=== PATIENT | female | born 1950 | race Two or more races ===

== ENCOUNTER 2019-01-22 18:00 | Inpatient (IN) | payer MEDICARE ==
[~2019-01-22] VITALS: Ht 149.9 cm; Wt 35.1 kg
--- NOTE | 2019-01-22 18:15 | NUR ---
CAME IN FOR ABDOMINAL PAIN SINCE YESTERDAY, -N/V/D. PS 02/16. TO ER BED 7, HOOKED T MONITOR, CHANGED TO GOWN, PROVIDED W WARM BLANKET, DR PARKER AT BEDSIDE
[2019-01-22] MEDS ORDERED: MORPHINE SULFATE INJ 2 MG/ML DISP.SYRIN IV ONE (18:30)
[2019-01-22] MEDS ORDERED: IV NS 0.9% 500 ML BAG IV ONE (18:30)
[2019-01-22] MEDS ORDERED: ONDANSETRON HCL/PF 4 MG/2 ML VIAL ONE (18:30)
[2019-01-22] MEDS ORDERED: MORPHINE SULFATE INJ 2 MG/ML DISP.SYRIN ONE ×2 (18:30→23:59)
[2019-01-22] MEDS ORDERED: ONDANSETRON HCL/PF 4 MG/2 ML VIAL IVP ONE (18:30)
[2019-01-22 18:39] LABS: BASOPHILS % (AUTO) 0.7 % (0.0-2.0); HEMATOCRIT 38 % (33-45); HEMOGLOBIN 12.4 g/dL (11.5-14.8); LYMPHOCYTES # (AUTO) 0.6 /CMM (0.8-4.8); LYMPHOCYTES % (AUTO) 7.9 % (20.0-44.0); MEAN CORPUSCULAR HGB CONC 33 g/dl (31.0-36.0); MEAN CORPUSCULAR VOLUME 92 fL (82-100); MONOCYTES # (AUTO) 0.1 /CMM (0.1-1.30); MONOCYTES % (AUTO) 1.5 % (2.0-12.0); NEUTROPHILS # (AUTO) 6.7 /CMM (1.8-8.9); NEUTROPHILS % (AUTO) 89.9 % (43.0-81.0); PLATELET COUNT (AUTO) 164 /CMM (150-450); RED BLOOD CELL COUNT(AUTO) 4.06 MIL/uL (4.0-5.2); WHITE BLOOD COUNT (AUTO) 7.5 K/uL (4.3-11.0)
[2019-01-22 18:49] LABS: CALCIUM, SERUM 9.3 mg/dL (8.5-10.1); CARBON DIOXIDE 24 mmol/L (21-32); CHLORIDE 101 mmol/L (98-107); CREATININE 0.9 mg/dL (0.6-1.3); GLUCOSE 105 mg/dL (74-106); POTASSIUM 3.5 mmol/L (3.5-5.1); SODIUM SERUM 140 mmol/L (136-145); UREA NITROGEN, BLOOD 18 mg/dL (7-18)
[2019-01-22 18:53] LABS: ALANINE AMINOTRANSFERASE 12 U/L (12-78); ALBUMIN 3.9 g/dL (3.4-5.0); ALKALINE PHOSPHATASE 60 U/L (46-116); ASPARTATE AMINOTRANSFERASE 16 U/L (15-37); BILIRUBIN,DIRECT 0.1 mg/dL (0.0-0.2); BILIRUBIN,TOTAL 0.8 mg/dL (0.2-1.0); LIPASE 82 U/L (73-393); TOTAL PROTEIN, SERUM 7.4 g/dL (6.4-8.2)
[2019-01-22] MEDS ORDERED: PIPERACILLIN /TAZOBACTAM 3.375 G in IV D5W 50 ML IV ONE (21:30)
--- NOTE | 2019-01-22 21:58 | NUR ---
CALLED [facility], PAGED PATRICIO
[2019-01-22] MEDS ORDERED: HYDROCODONE/APAP 5/325MG 1 EACH TABLET PO PRN (22:00)
[2019-01-22] MEDS ORDERED: Z GUARD REMEDY 2 OZ OINT TP PRN (22:00)
[2019-01-22] MEDS ORDERED: MAG HYDROX/AL HYDROX/SIMETH 30 ML UDC PO PRN (22:00)
[2019-01-22] MEDS ORDERED: IV NS 0.9% 1,000 ML BAG IV ONE (22:00)
[2019-01-22] MEDS ORDERED: MAGNESIUM HYDROXIDE 30 ML UDC PO PRN (22:00)
[2019-01-22] MEDS ORDERED: MORPHINE SULFATE INJ 2 MG/ML DISP.SYRIN IV PRN (22:00)
[2019-01-22] MEDS ORDERED: IV NS 0.9% 1,000 ML IV PRN (22:00)
[2019-01-22] MEDS ORDERED: ONDANSETRON HCL/PF 4 MG/2 ML VIAL IVP PRN (22:00)
[2019-01-22] MEDS ORDERED: PIPERACILLIN /TAZOBACTAM 3.375 G VIAL IV ONE (22:08)
--- NOTE | 2019-01-22 22:49 | NUR ---
DR. CURRY AT BEDSIDE FOR EVAL.
--- NOTE | 2019-01-22 23:39 | NUR ---
PT ASSIGNED TO BED 208-
--- NOTE | 2019-01-22 23:48 | NUR ---
INSTRUCTED PATIENT NPO, PATIENT VERBALIZED UNDERSTANDING
--- NOTE | 2019-01-22 23:50 | NUR ---
REPORT GIVEN TO FREYA OF MS UNIT
--- NOTE | 2019-01-22 23:58 | NUR ---
PATIENT C/O 7/10 PS OF ABDOMINAL PAIN, ASKING FOR PAIN MEDICATION. MADE DR CARTER AWARE. RECEIVED VERBAL ORDER OF MORPHINE 2MG IVP. CARRIED OUT
[2019-01-23] VITALS (9 sets, daily range): BP systolic 93–106; BP diastolic 52–62
--- NOTE | 2019-01-23 00:03 | NUR ---
URINE SAMPLE SENT TO LAB
[2019-01-23 00:13] LABS: APPEARANCE,URINE Clear (CLEAR); BILIRUBIN,URINE MODERATE (NEGATIVE); BLOOD, URINE Trace-lysed Ery/uL (NEGATIVE); COLOR,URINE Yellow (YELLOW); KETONES,URINE >=160 (NEGATIVE); LEUKOCYTE ESTERASE ,URINE Negative (NEGATIVE); NITRITE, URINE Negative (NEGATIVE); PROTEIN,URINE 30 mg/dl (NEGATIVE); UGLUCOSE Negative (NEGATIVE); UROBILINOGEN,URINE 0.2 EU/dL (0.2)
[2019-01-23] MEDS ORDERED: MORPHINE SULFATE INJ 2 MG/ML DISP.SYRIN IV PRN (00:30)
[2019-01-23 00:45] LABS: BACTERIA,URINE Few /HPF (None Seen); SQUAMOUS EPITHELIAL CELL,UR Few /HPF (None Seen); URINE AMORPHOUS URATE Moderate /HPF (None Seen); WBC,URINE 0-2 /HPF (0-3)
--- NOTE | 2019-01-23 00:49 | NUR ---
PT WAS TRANSFERRED TO 208 IN STABLE CONDITION.
--- NOTE | 2019-01-23 00:50 | NUR ---
RECEIVED PATIENT FROM ED VIA GURNEY IN STABLE CONDITION. PATIENT AWAKE, A/OX4 AND ABLE TO PROVIDE HISTORY. WITH C/O 7/10 SHARP ABDOMINAL PAIN, PRN MORPHINE 2MG IV GIVEN IN ER PRIOR TO TRANSFER TO UNIT. PERIPHERAL LINE IN RFA #18 GAUGE INTACT AND PATENT. NPO STATUS MAINTAINED. PATIENT VERBALIZED GOOD UNDERSTANDING OF CURRENT POC. BED IN LOW LOCK SETTING. ROOM FREE OF CLUTTER AND BELONGINGS KEPT NEAR BEDSIDE. WILL CONTINUE TO MONITOR.
[2019-01-23] MEDS ORDERED: ZOSYN IVPB 3.375 G in IV D5W 50ml IV ONE (04:00)
[2019-01-23] MEDS ORDERED: PIPERACILLIN /TAZOBACTAM 3.375 G VIAL IV ONE (04:21)
[2019-01-23] MEDS ORDERED: ZOSYN IVPB 3.375 G in IV D5W 50ml IV SCH (06:00)
[2019-01-23 06:31] LABS: BASOPHILS % (AUTO) 0.1 % (0.0-2.0); HEMATOCRIT 33 % (33-45); HEMOGLOBIN 11.1 g/dL (11.5-14.8); LYMPHOCYTES # (AUTO) 0.7 /CMM (0.8-4.8); LYMPHOCYTES % (AUTO) 6.3 % (20.0-44.0); MEAN CORPUSCULAR HGB CONC 34 g/dl (31.0-36.0); MEAN CORPUSCULAR VOLUME 91 fL (82-100); MONOCYTES # (AUTO) 0.5 /CMM (0.1-1.30); MONOCYTES % (AUTO) 4.4 % (2.0-12.0); NEUTROPHILS # (AUTO) 10.5 /CMM (1.8-8.9); NEUTROPHILS % (AUTO) 89.2 % (43.0-81.0); PLATELET COUNT (AUTO) 123 /CMM (150-450); RED BLOOD CELL COUNT(AUTO) 3.63 MIL/uL (4.0-5.2); WHITE BLOOD COUNT (AUTO) 11.7 K/uL (4.3-11.0)
--- NOTE | 2019-01-23 06:47 | NUR ---
MS RN NOTES PATIENT AWAKE IN BED WITH NO DISTRESS NOTED. CALL LIGHT WITHIN REACH. ALL DUE MEDS GIVEN ORDERED WITH NO ASE NOTED. NO FURTHER C/O PAIN OR DISCOMFORT. PERIPHERAL LINE INTACT AND PATENT. NPO STATUS MAINTAINED ORDERED. BED IN LOW LOCK SETTING. ROOM FREE OF CLUTTER AND BELONGINGS KEPT NEAR BEDSIDE. WILL ENDORSE TO ONCOMING SHIFT.
[2019-01-23 06:48] LABS: CALCIUM, SERUM 8.2 mg/dL (8.5-10.1); CREATININE 0.8 mg/dL (0.6-1.3); MAGNESIUM 1.5 mg/dL (1.8-2.4); PHOSPHORUS 3.2 mg/dL (2.5-4.9); POTASSIUM 3.6 mmol/L (3.5-5.1)
--- NOTE | 2019-01-23 07:45 | NUR ---
MS/RN Patient received Patient received from shift superintendent. A/O X4, vital signs stable, complaining of right sided abdominal pain 11/16. Will administer pain medications. NPO for possible surgery later today. Safety measures in place, will continue to monitor and ensure safety.
[2019-01-23] MEDS ORDERED: ASPI-992 PO (08:29)
[2019-01-23] MEDS ORDERED: MULT1TAB73 PO (08:29)
[2019-01-23] MEDS ORDERED: SIME80TA15 PO (08:29)
--- NOTE | 2019-01-23 09:00 | NUR ---
MS/RN Labs Morning labs reviewed: -WBC11.7 -Mag 1.5 -Lactic acid 1.6
--- NOTE | 2019-01-23 09:25 | NUR ---
MS/proposal director consult Dr Shah called to follow up and ensure that consult was called through. Awaiting call back.
[2019-01-23] MEDS: PIPERACILLIN /TAZOBACTAM 3.375 G in IV D5W 100 ML IV SCH ×2 (09:56→17:05)
--- NOTE | 2019-01-23 11:01 | NUR ---
MS/RN Dr Shah Patient seen and examined by Dr Shah - to be consented for laparoscopic, possible open appendectomy.
--- NOTE | 2019-01-23 11:33 | NUR ---
MS/community service patrol officer Patient taken to operating room for laparoscopic, possible open appendectomy.
[2019-01-23] MEDS: Magnesium 1GM/D5W 100ML PREMIX 100 ML IV SCH ×2 (12:54→12:55)
[2019-01-23] MEDS ORDERED: BUPIVACAINE 0.25% 75 MG/30 ML VIAL ONE (13:08)
[2019-01-23] MEDS ORDERED: BACITRACIN ZINC OINT (15 GM) 15 GM TUBE TP ONE ×2 (13:22→13:23)
[2019-01-23] MEDS ORDERED: BACITRACIN ZINC OINT PACKET 1 EA PACKET TP ONE (13:24)
[2019-01-23] MEDS ORDERED: HYDROCODONE/APAP 5/325MG 1 EACH TABLET PO PRN (14:30)
[2019-01-23] MEDS: IV LR 1000 ML 1,000 ML IV PRN (14:43)
--- NOTE | 2019-01-23 14:56 | NUR ---
MS/RN Post op Patient received back to room, s/p open appendectomy with Dr Shah. Vital signs recorded as per hospital protocol, remains slightly hypotensive at 97/54 although this is within normal range for patient, all other vital signs stable. Perez catheter to gravity, draining clear yellow urine. IV fluids LR infusing at 125ml/hr via right ac 22g, no signs of infiltration. Patient to remain NPO overnight and start clear liquids tomorrow morning. Surgical dressing to abdomen clean and dry. Call light within reach, bed in low setting, side rails X3 in upright position, will continue to monitor and ensure safety.
[2019-01-23] MEDS: PANTOPRAZOLE 40 MG VIAL IV SCH (17:05)
--- NOTE | 2019-01-23 18:29 | NUR ---
MS/RN End note Remains stable post op. Dressing dry and intact, patient aware that fluids are to be held until tomorrow morning. Mouth care provided. Call light within reach, will endorse to overnight stocker.
[2019-01-23] MEDS: HYDROMORPHONE 1 MG/1 ML DISP.SYRIN IV PRN (20:25)
--- NOTE | 2019-01-23 22:00 | NUR ---
MS/RN PATIENT IS SLEEPING AT THIS TIME, AROUSABLE, APPEAR COMFORTABLE, NO SIGNS OF DISTRESS NOTED, CALL LIGHT IN REACH. WILL MONITOR.
[2019-01-24] MEDS: PIPERACILLIN /TAZOBACTAM 3.375 G in IV D5W 100 ML IV SCH ×3 (01:56→17:35)
[2019-01-24] MEDS: IV LR 1000 ML 1,000 ML IV PRN ×2 (01:57→16:05)
[2019-01-24] MEDS: HYDROMORPHONE 1 MG/1 ML DISP.SYRIN IV PRN ×3 (03:43→23:04)
--- NOTE | 2019-01-24 07:08 | NUR ---
MS/RN PATIENT IS AWAKE, COMFORTABLE, NO SIGNS OF DISTRESS NOTED, CALL LIGHT IN REACH. ALL NEEDS ATTENDED AT THIS TIME, WILL CONTINUE TO MONITOR.
[2019-01-24 07:26] LABS: BASOPHILS % (AUTO) 0.1 % (0.0-2.0); HEMATOCRIT 30 % (33-45); LYMPHOCYTES # (AUTO) 0.7 /CMM (0.8-4.8); LYMPHOCYTES % (AUTO) 6.5 % (20.0-44.0); MEAN CORPUSCULAR HGB CONC 34 g/dl (31.0-36.0); MEAN CORPUSCULAR VOLUME 92 fL (82-100); MONOCYTES # (AUTO) 0.3 /CMM (0.1-1.30); MONOCYTES % (AUTO) 2.4 % (2.0-12.0); NEUTROPHILS # (AUTO) 9.8 /CMM (1.8-8.9); PLATELET COUNT (AUTO) 111 /CMM (150-450); RED BLOOD CELL COUNT(AUTO) 3.25 MIL/uL (4.0-5.2); WHITE BLOOD COUNT (AUTO) 10.8 K/uL (4.3-11.0)
--- NOTE | 2019-01-24 07:32 | NUR ---
MS RN NOTES PATIENT RECEIVED RESTING INSIDE ROOM. AWAKE, ALERT AND ORIENTED X 4, VERBALLY RESPONSIVE AND RESPONDS TO VERBAL AND TACTILE STIMULI. BREATHING EVEN AND UNLABORED. PAUL CATHETER IN PLACE WITH YELLOW URINE OUTPUT NOTED ON COLLECTING BAG. PATIENT CALM AND RELAXED. NO CHANGES IN LOC NOTED AT THIS TIME. WILL CONTINUE TO MONITOR. BED LOCKED AND IN LOW POSITION. BILATERAL UPPER SIDE RAILS UP AND LOCKED. CALL LIGHT WITHIN EASY REACH
[2019-01-24 07:50] LABS: CALCIUM, SERUM 8.3 mg/dL (8.5-10.1); CREATININE 0.8 mg/dL (0.6-1.3); MAGNESIUM 1.7 mg/dL (1.8-2.4); PHOSPHORUS 2.7 mg/dL (2.5-4.9); POTASSIUM 3.5 mmol/L (3.5-5.1)
[2019-01-24 08:00] VITALS: BP 94/57
[2019-01-24] MEDS ORDERED: Magnesium 1GM/D5W 100ML PREMIX PIGGYBACK IV ONE (09:00)
[2019-01-24] MEDS: Magnesium 1GM/D5W 100ML PREMIX 100 ML IV SCH ×2 (09:40→11:33)
--- NOTE | 2019-01-24 11:30 | NUR ---
MS RN NOTES PATIENT SEEN AND EXAMINED BY DR. DEL ROSARIO, CLEARED PATIENT TO START SOFT DIET. ORDER NOTED AND CARRIED OUT. PATIENT AWARE AND VERBALIZED UNDERSTANDING. WILL CONTINUE TO MONITOR
[2019-01-24] MEDS: ONDANSETRON HCL/PF 4 MG/2 ML VIAL IVP PRN ×2 (12:41→22:00)
[2019-01-24] MEDS: ENSURE CLEAR 237 ML LIQUID (MIX BERRY) PO SCH ×2 (13:00→17:36)
[2019-01-24] MEDS: PANTOPRAZOLE 40 MG VIAL IV SCH (17:35)
--- NOTE | 2019-01-24 19:20 | NUR ---
MS RN OPENING NOTES Received patient A/O x4, awake on Conde's position on bed. With minimal complaints of abdominal pain, aggravated by movement, relieved by rest, 3/10. With abdominal dressing clean, dry and intact. S/P explore laparotomy day 2, afebrile at this time. With peripheral IV line RAC G#18 with NS infusing well @ 125ml/hr as ordered. Discussed with patient the plan of care, encouraged patient to increase ambulation as tolerated. Patient verbalized understanding. Kept bed low and locked, siderails x2 up. Call light within easy reach. Will continue to monitor accordingly.
--- NOTE | 2019-01-24 19:41 | NUR ---
MS RN NOTES PATIENT RESTING INSIDE ROOM. AWAKE, ALERT AND ORIENTED X4, VERBALLY RESPONSIVE AND RESPONDS TO VERBAL AND TACTILE STIMULI. BREATHING EVEN AND UNLABORED. NO ACUTE DISTRESS. DENIES ANY PAIN OR DISCOMFORT AT THIS TIME. PATIENT KEPT CLEAN, DRY AND COMFORTABLE. PROVIDED WITH CALM, SAFE, HAZARD-FREE ENVIRONMENT. ENDORSED TO INCOMING SHIFT FOR KRISTOFER. BED LOCKED AND IN LOW POSITION. BILATERAL UPPER SIDE RAILS UP AND LOCKED. CALL LIGHT WITHIN EASY REACH
[2019-01-24 19:55] VITALS: BP 95/59
[2019-01-25] MEDS: IV LR 1000 ML 1,000 ML IV PRN ×2 (00:49→10:23)
[2019-01-25] MEDS: PIPERACILLIN /TAZOBACTAM 3.375 G in IV D5W 100 ML IV SCH ×3 (01:25→17:12)
[2019-01-25] MEDS: ONDANSETRON HCL/PF 4 MG/2 ML VIAL IVP PRN ×2 (03:56→15:28)
--- NOTE | 2019-01-25 06:41 | NUR ---
MS RN CLOSING NOTES Patient intermittently asleep throughout the shift. On RA, no respiratory distress noted. Patient claimed she remained nauseous all throughout the shift despite the Zofran medication, 2 doses administered as ordered. Offered non-pharmacologic interventions, patient insisted to refuse interventions offered. All nursing needs attended. Patient noted ambulating to bathroom with 1 person assist. Kept on bed clean, dry and comfortable. Call light within easy reach. On fall precautions. Endorsed to the next shift.
[2019-01-25 08:00] VITALS: BP 121/74
--- NOTE | 2019-01-25 08:00 | NUR ---
MS RN NOTES PATIENT IN BED ALERT, ORIENTED X3 DENIES ANY PAIN OR DISCOMFORT. PATIENT IS COMPLAINING FO NAUSEA DR. VEGA MADE AWARE ORDERS OBTAINED FOR REGLAN Q8HRS NEEDED. PERIPHERAL IV INTACT PATENT. CALL LIGHT WITHIN REACH. BED IN LOW LOCKED POSITION. WILL CONTINUE TO MONITOR.
[2019-01-25] MEDS: ENSURE CLEAR 237 ML LIQUID (MIX BERRY) PO SCH ×3 (08:30→17:50)
[2019-01-25] MEDS: METOCLOPRAMIDE HCL 10 MG/2 ML VIAL IV PRN ×2 (09:09→17:49)
[2019-01-25 16:00] VITALS: BP 119/70
[2019-01-25] MEDS: PANTOPRAZOLE 40 MG VIAL IV SCH (17:13)
--- NOTE | 2019-01-25 18:46 | NUR ---
MS RN NOTES PATIENT IN BED RESTING NO SOB OR ACUTE DISTRESS NOTED. ALL DUE MEDICATIONS ADMINISTERED. ALL NEEDS MET. NO ACUTE CHANGES NOTED DURING SHIFT. WILL ENDORSE CARE TO PM SHIFT.
--- NOTE | 2019-01-25 19:56 | NUR ---
MS/RN RECEIVE PATIENT AWAKE, ALERT, ORIENTED, COMFORTABLE, NO C/O PAIN, NO DISTRESS NOTED, CALL LIGHT IN REACH. WILL MONITOR.
[2019-01-25 20:53] VITALS: BP 128/75
[2019-01-26] MEDS: ONDANSETRON HCL/PF 4 MG/2 ML VIAL IVP PRN ×2 (00:12→21:49)
--- NOTE | 2019-01-26 01:35 | NUR ---
MS/RN PATIENT IS SLEEPING AT THIS TIME, APPEAR COMFORTABLE, NO SIGNS OF DISTRESS NOTED, CALL LIGHT IN REACH. WILL CONTINUE TO MONITOR.
[2019-01-26] MEDS: PIPERACILLIN /TAZOBACTAM 3.375 G in IV D5W 100 ML IV SCH ×3 (01:56→17:13)
[2019-01-26] MEDS: IV LR 1000 ML 1,000 ML IV PRN ×3 (03:05→21:49)
--- NOTE | 2019-01-26 06:45 | NUR ---
MS/RN PATIENT IS STILL SLEEPING AT THIS TIME, APPEAR COMFORTABLE, NO DISTRESS NOTED, CALL LIGHT IN REACH. ALL NEEDS ATTENDED AT THIS TIME, WILL CONTINUE TO MONITOR.
--- NOTE | 2019-01-26 07:53 | NUR ---
MS RN OPENING NOTES RECEIVED PT SITTING UP IN BED, A/O X4. RESPIRATIONS ARE EVEN AND UNLABORED, NOT IN ANY ACUTE DISTRESS NOTED. PT DENIES ANY PAIN AT THIS TIME, NO C/O SOB, N/V. IV SITE TO RAC INTACT, NO INFILTRATION NOTED. DRESSING KEPT CLEAN AND DRY. IV FLUIDS RUNNING AT 125ML/HR, TOLERATING WELL. SAFETY MEASURES ARE IN PLACE. INSTRUCTED PT TO USE CALL LIGHT WHEN ASSISTANCE IS NEEDED, CALL LIGHT IS LEFT WITHIN REACH. WILL MONITOR THROUGHOUT SHIFT FOR CONTINUITY OF CARE.
[2019-01-26 08:00] VITALS: BP 111/68
[2019-01-26] MEDS: ACETAMINOPHEN 325 MG TABLET PO PRN (08:18)
[2019-01-26] MEDS: ENSURE CLEAR 237 ML LIQUID (MIX BERRY) PO SCH (08:18)
--- NOTE | 2019-01-26 08:40 | NUR ---
MS RN NOTES-- PT WAS SEEN AND EXAMINED BY DR. PATEL.
[2019-01-26] MEDS: ENSURE ENLIVE 237 ML LIQUID (VANILLA) PO SCH ×2 (12:54→17:13)
[2019-01-26 16:00] VITALS: BP_SYST 121; BP_SYST 124; BP_DIAS 69; BP_DIAS 78
[2019-01-26] MEDS: PANTOPRAZOLE 40 MG VIAL IV SCH (17:13)
--- NOTE | 2019-01-26 19:03 | NUR ---
MS RN CLOSING NOTES ALL DUE MEDS GIVEN, NEEDS MET AND RENDERED. PT IS A/O X4, AFEBRILE. RESPIRATIONS ARE EVEN AND UNLABORED, NOT IN ANY ACUTE DISTRESS NOTED. PT DENIES ANY PAIN AT THIS TIME, NO C/O SOB, N/V. IV SITE TO RAC INTACT, NO INFILTRATION NOTED. DRESSING KEPT CLEAN AND DRY. PT IS AMBULATORY WITH FWW AND STANDBY ASSIST. SAFETY MEASURES ARE IN PLACE. WILL ENDORSED TO NEXT SHIFT FOR CONTINUITY OF CARE.
--- NOTE | 2019-01-26 19:30 | NUR ---
RECEIVED PATIENT AWAKE IN BED. AO X 3, ABLE TO MAKE NEEDS KNOWN. NO ACUTE DISTRESS NOTED. DENIES ANY PAIN AT THIS TIME. IV SITE PATENT, INTACT; IVF INFUSING ORDERED. ABDOMINAL DRESSING INTACT WITH NO SIGNS OF ACTIVE BLEEDING. SAFETY REMINDERS GIVEN. ON LOW BED WITH BILATERAL UPPER SIDE RAILS UP. CALL TAN WITHIN EASY REACH. WILL CONTINUE TO MONITOR.
[2019-01-26 19:40] VITALS: BP 119/71
[2019-01-26 20:00] VITALS: BP 119/71
--- NOTE | 2019-01-27 01:00 | NUR ---
PATIENT AWAKE. NO ACUTE DISTRESS NOTED. ENCOURAGED TO SLEEP. ASSISTED TO THE BATHROOM. NO BM THIS SHIFT SO FAR. VOIDED AT LEAST ONCE. WILL CONTINUE TO MONITOR.
[2019-01-27] MEDS: PIPERACILLIN /TAZOBACTAM 3.375 G in IV D5W 100 ML IV SCH (02:04)
[2019-01-27] MEDS: IV LR 1000 ML 1,000 ML IV PRN ×2 (06:29→21:56)
--- NOTE | 2019-01-27 06:30 | NUR ---
PATIENT ASLEEP, EASILY AROUSABLE. RESPIRATIONS EVEN. NO SIGNS OF PAIN NOTED. NPO SINCE MIDNIGHT. IVF INFUSING ORDERED. NEEDS ATTENDED. SAFETY PRECAUTIONS AND COMFORT MEASURES IN PLACE. WILL GIVE REPORT TO DAY SHIFT FOR CONTINUITY OF CARE.
--- NOTE | 2019-01-27 07:35 | NUR ---
MS RN OPENING NOTES RECEIVED PT SITTING UP IN BED, A/O X4. RESPIRATIONS ARE EVEN AND UNLABORED, NOT IN ANY ACUTE DISTRESS NOTED. PT DENIES ANY PAIN AT THIS TIME, NO C/O SOB, N/V. IV SITE TO RAC INTACT, NO INFILTRATION NOTED. DRESSING KEPT CLEAN AND DRY. IV FLUIDS RUNNING AT 125ML/HR, TOLERATING WELL. ASSISTED PT TO BATHROOM USING FWW. PT ABLE TO HAVE SMALL BM THIS AM. PT ASSISTED BACK TO BED. SAFETY MEASURES ARE IN PLACE. INSTRUCTED PT TO USE CALL LIGHT WHEN ASSISTANCE IS NEEDED, CALL LIGHT IS LEFT WITHIN REACH. WILL MONITOR THROUGHOUT SHIFT FOR CONTINUITY OF CARE.
[2019-01-27 08:00] VITALS: BP 112/71
[2019-01-27] MEDS ORDERED: CEFAZOLIN 2 GM in IV D5W 100 ML IV SCH (08:30)
[2019-01-27] MEDS: CEFAZOLIN 1 GM in IV D5W 50 ML IV SCH ×2 (09:21→21:56)
[2019-01-27] MEDS: ENSURE ENLIVE 237 ML LIQUID (VANILLA) PO SCH ×3 (09:29→16:20)
[2019-01-27 10:07] LABS: CALCIUM, SERUM 8.3 mg/dL (8.5-10.1); CREATININE 0.6 mg/dL (0.6-1.3)
[2019-01-27 10:10] LABS: BASOPHILS % (AUTO) 0.1 % (0.0-2.0); HEMATOCRIT 32 % (33-45); HEMOGLOBIN 10.9 g/dL (11.5-14.8); LYMPHOCYTES # (AUTO) 0.5 /CMM (0.8-4.8); MEAN CORPUSCULAR HGB CONC 34 g/dl (31.0-36.0); MEAN CORPUSCULAR VOLUME 90 fL (82-100); MONOCYTES # (AUTO) 0.7 /CMM (0.1-1.30); MONOCYTES % (AUTO) 6.8 % (2.0-12.0); NEUTROPHILS # (AUTO) 8.6 /CMM (1.8-8.9); NEUTROPHILS % (AUTO) 88.1 % (43.0-81.0); PLATELET COUNT (AUTO) 190 /CMM (150-450); RED BLOOD CELL COUNT(AUTO) 3.57 MIL/uL (4.0-5.2); WHITE BLOOD COUNT (AUTO) 9.8 K/uL (4.3-11.0)
[2019-01-27 10:13] LABS: ALBUMIN 2.5 g/dL (3.4-5.0); BILIRUBIN,TOTAL 0.6 mg/dL (0.2-1.0); TOTAL PROTEIN, SERUM 5.6 g/dL (6.4-8.2)
[2019-01-27 10:14] LABS: POTASSIUM 2.7 mmol/L (3.5-5.1)
[2019-01-27] MEDS: POTASSIUM CHLORIDE 20 MEQ TAB.PRT.SR PO SCH ×4 (10:46→14:09)
[2019-01-27] MEDS: METOCLOPRAMIDE HCL 10 MG/2 ML VIAL IV PRN (11:14)
--- NOTE | 2019-01-27 12:40 | NUR ---
MS RN NOTES-- PT ABLE TO MAKE NEEDS KNOWN, NEEDS MET AND RENDERED. PT NOT IN ANY APPARENT DISTRESS NOTED. WILL CONTINUE TO MONITOR.
--- NOTE | 2019-01-27 15:30 | NUR ---
MS RN NOTES-- PT'S DPOA AT BEDSIDE WITH NOTARY PERSON. PAPERS OF ADVANCED DIRECTIVES PLACED IN CHART. CASE MANAGEMENT, SENG, AWARE. DR. PATEL MADE AWARE THAT PT WISHES TO BE DNR/DNI. PER DR. PATEL, OKAY TO CHANGE CODE STATUS.
--- NOTE | 2019-01-27 16:06 | NUR ---
MS RN NOTES-- RECEIVED ORDERS PER DR. PATEL FOR RESTORIL 7.5MG PO HS PRN. ORDER READ BACK AND VERIFIED. NOTED AND CARRIED OUT.
[2019-01-27] MEDS ORDERED: TEMAZEPAM 7.5 MG CAPSULE PO PRN (16:30)
[2019-01-27 16:40] VITALS: BP 129/81
[2019-01-27] MEDS: PANTOPRAZOLE 40 MG VIAL IV SCH (17:11)
--- NOTE | 2019-01-27 18:31 | NUR ---
MS RN CLOSING NOTES ALL DUE MEDS GIVEN, NEEDS MET AND RENDERED. PT IS A/O X4, AFEBRILE. RESPIRATIONS ARE EVEN AND UNLABORED, NOT IN ANY ACUTE DISTRESS NOTED. PT DENIES ANY PAIN AT THIS TIME, NO C/O SOB, N/V. IV SITE TO RAC INTACT, NO INFILTRATION NOTED. DRESSING KEPT CLEAN AND DRY. SAFETY MEASURES ARE IN PLACE. WILL ENDORSED TO NEXT SHIFT FOR CONTINUITY OF CARE.
[2019-01-27 20:00] VITALS: BP 135/85
--- NOTE | 2019-01-27 20:00 | NUR ---
MS RN NOTES RECEIVED PATIENT AWAKE IN BED WITH NO DISTRESS NOTED. CALL LIGHT WITHIN REACH. DRESSING ON ABDOMINAL INCISION CLEAN AND DRY. NO C/O PAIN OR DISCOMFORT. PERIPHERAL LINE INTACT AND PATENT. ENCOURAGED USE OF CALL LIGHT FOR ASSISTANCE AND VERBALIZED GOOD UNDERSTANDING. BED IN LOW LOCK SETTING. ROOM FREE OF CLUTTER AND BELONGINGS KEPT NEAR BEDSIDE. WILL CONTINUE TO MONITOR.
[2019-01-27] MEDS: ACETAMINOPHEN 325 MG TABLET PO PRN (21:11)
--- NOTE | 2019-01-28 07:18 | NUR ---
MS RN NOTES PATIENT AWAKE IN BED WITH NO DISTRESS NOTED. CALL LIGHT WITHIN REACH. ABDOMINAL DRESSING INTACT, CLEAN, AND DRY. NO C/O PAIN OR DISCOMFORT. ALL DUE MEDS GIVEN ORDERED WITH NO ASE NOTED. PERIPHERAL LINE INTACT AND PATENT. BED IN LOW LOCK SETTING. ALL BELONGINGS KEPT NEAR BEDSIDE. WILL ENDORSE TO ONCOMING SHIFT.
[2019-01-28] MEDS: ONDANSETRON HCL/PF 4 MG/2 ML VIAL IVP PRN (07:51)
[2019-01-28] MEDS: ACETAMINOPHEN 325 MG TABLET PO PRN (07:51)
[2019-01-28 08:00] VITALS: BP 122/78
[2019-01-28] MEDS: ENSURE ENLIVE 237 ML LIQUID (VANILLA) PO SCH ×3 (08:10→17:28)
[2019-01-28] MEDS: CEFAZOLIN 1 GM in IV D5W 50 ML IV SCH (09:22)
[2019-01-28 09:40] LABS: CALCIUM, SERUM 8.1 mg/dL (8.5-10.1); CREATININE 0.5 mg/dL (0.6-1.3); POTASSIUM 3.7 mmol/L (3.5-5.1)
--- NOTE | 2019-01-28 11:23 | NUR ---
MS RN NOTES-- RECEIVED ORDERS PER DR. PATEL FOR D/C TO SNF WITH NO ABX PER DR. DEL ROSARIO. AND TO FOLLOW UP WITH DR. DEL ROSARIO WITHIN 1 WEEKS TO REMOVE UMAIR. GARY HOLLAND MADE AWARE.
[2019-01-28 16:00] VITALS: BP 134/77
[2019-01-28] MEDS: PANTOPRAZOLE 40 MG VIAL IV SCH (17:59)
--- NOTE | 2019-01-28 18:43 | NUR ---
MS BESSEMER CONVERTER BLOWER NOTE PT DISCHARGE TO CENTER AT [facility] VIA [facility] ACCOMPANIED BY EMT PERSONNEL. PT IS A/O X4, AFEBRILE. RESPIRATIONS ARE EVEN AND UNLABORED, NOT IN ANY ACUTE DISTRESS NOTED. PT DENIES ANY PAIN AT THIS TIME, NO C/O SOB, N/V. ABDOMEN IS SOFT AND NONDISTENDED, BOWEL SOUNDS ARE PRESENT IN ALL 4 QUADRANTS UPON AUSCULTATION. DRESSING INTACT. PER DR. DEL ROSARIO, TO FOLLOW UP FOR STAPLE REMOVAL IN 1 WEEK. DENIES ANY BLADDER DISCOMFORT. PICTURE TAKEN TO LEFT FOOT, PLACED IN CHART. IV ACCESS REMOVED, APPLIED PRESSURE AND TOLERATED WELL. ID BANDS REMOVED. ALL BELONGINGS SENT WITH PT. CALLED [facility] AT [facility], REPORT GIVEN TO KIERSTEN, COPY OF ADVANCE DIRECTIVES SENT WITH DISCHARGE PAPERWORK. CALLED GARY HOLLAND, AND EXPLAINED DISCHARGE PAPERWORK TO BOTH DPOA AND PT WITH VERBAL AND WRITTEN UNDERSTANDING. BEDSIDE ENDORSEMENT GIVEN TO EMT PERSONNEL. PT LEFT VIA GURNEY IN STABLE CONDITION.
== END 2019-01-28 18:40 | DRG 341 ==
LOC: ER 18:03 → MEDSG2 23:41 → MED 01-27 20:08
PROVIDERS: ADMIT Internal Medicine; ATTEND Internal Medicine
PROC: 0DTJ0ZZ Resection of Appendix, Open Approach (ICD-10-PCS; principal; 2019-01-23)
PROC: 0WJG4ZZ Inspection of Peritoneal Cavity, Percutaneous Endoscopic Approach (ICD-10-PCS; 2019-01-23)
DX: K35.30 Acute appendicitis with localized peritonitis, without perforation or gangrene (principal); E43 Unspecified severe protein-calorie malnutrition; E87.2 Acidosis; Z68.1 Body mass index [BMI] 19.9 or less, adult; R64 Cachexia; E78.5 Hyperlipidemia, unspecified; Z53.31 Laparoscopic surgical procedure converted to open procedure; D63.8 Anemia in other chronic diseases classified elsewhere; K76.9 Liver disease, unspecified; K58.9 Irritable bowel syndrome, unspecified
CPT/HCPCS: 36415; 71045-TC; 80048-TC; 80053-TC; 80061-TC; 80076-TC; 81000-TC; 83605-TC; 83690-TC; 83735-TC; 84100-TC; 84134-TC; 85025-TC; 85730-TC; 87070-TC; 87075-TC; 87081-TC; 87186-TC; 88304-TC; 97110-TC; 97116-TC; 97530-TC; A6403; C9113; G0378; J0690; J1100; J1170; J2270; J2370; J2405; J2543; J2765; J3475; J3490; J7030; J7040; J7050; J7060; J7120

== ENCOUNTER 2019-02-01 12:01 | Inpatient (IN) | payer MEDICARE ==
[~2019-02-01] VITALS: Ht 152.4 cm; Wt 42.2 kg
[~2019-02-01 12:01] MED LIST: ASPI-992 PO; MULT1TAB73 PO; SIME80TA15 PO
--- NOTE | 2019-02-01 12:10 | NUR ---
PT FLOYD DOTY FROM SNF TO ER W/ COMPLAIN OF ABDOMINAL PAIN AND NAUSEA VOMITING 4x DAYS W/ DIARRHEA THIS MORNING. PT HAS HX OF APPENDECTOMY. NAD. NO SOB NOTED. PT IS GIVEN 2L NC NOW 97 O2 SAT. AWAITING LALITHA GILBERT FOR FURTHER EVAL. WILL CONTINUE TO MONITOR FOR SAFETY.
[2019-02-01] MEDS ORDERED: MORPHINE SULFATE INJ 2 MG/ML DISP.SYRIN IV ONE ×2 (13:00→18:30)
[2019-02-01] MEDS ORDERED: ONDANSETRON HCL/PF 4 MG/2 ML VIAL IVP ONE (13:00)
[2019-02-01] MEDS ORDERED: IV NS 0.9% 1,000 ML BAG IV ONE (13:00)
[2019-02-01 13:06] LABS: BASOPHILS % (AUTO) 0.2 % (0.0-2.0); HEMATOCRIT 35 % (33-45); HEMOGLOBIN 11.6 g/dL (11.5-14.8); LYMPHOCYTES # (AUTO) 0.5 /CMM (0.8-4.8); LYMPHOCYTES % (AUTO) 3.2 % (20.0-44.0); MEAN CORPUSCULAR HGB CONC 33 g/dl (31.0-36.0); MEAN CORPUSCULAR VOLUME 92 fL (82-100); MONOCYTES # (AUTO) 0.5 /CMM (0.1-1.30); MONOCYTES % (AUTO) 3.5 % (2.0-12.0); NEUTROPHILS # (AUTO) 13.7 /CMM (1.8-8.9); NEUTROPHILS % (AUTO) 93.1 % (43.0-81.0); PLATELET COUNT (AUTO) 374 /CMM (150-450); RED BLOOD CELL COUNT(AUTO) 3.82 MIL/uL (4.0-5.2); WHITE BLOOD COUNT (AUTO) 14.7 K/uL (4.3-11.0)
[2019-02-01] MEDS ORDERED: ONDANSETRON HCL/PF 4 MG/2 ML VIAL ONE (13:12)
[2019-02-01] MEDS ORDERED: MORPHINE SULFATE INJ 4 MG/ML DISP.SYRIN ONE ×2 (13:13→18:31)
[2019-02-01 13:20] LABS: ALBUMIN 3.1 g/dL (3.4-5.0); BILIRUBIN,DIRECT 0.1 mg/dL (0.0-0.2); BILIRUBIN,TOTAL 0.6 mg/dL (0.2-1.0); CALCIUM, SERUM 8.6 mg/dL (8.5-10.1); CREATININE 0.7 mg/dL (0.6-1.3); POTASSIUM 2.9 mmol/L (3.5-5.1); TOTAL PROTEIN, SERUM 6.6 g/dL (6.4-8.2)
[2019-02-01 13:21] LABS: MAGNESIUM 2.3 mg/dL (1.8-2.4); PHOSPHORUS 3.2 mg/dL (2.5-4.9)
[2019-02-01 14:07] LABS: APPEARANCE,URINE Clear (CLEAR); BILIRUBIN,URINE SMALL (NEGATIVE); BLOOD, URINE Small Ery/uL (NEGATIVE); COLOR,URINE Yellow (YELLOW); KETONES,URINE >=160 (NEGATIVE); LEUKOCYTE ESTERASE ,URINE Negative (NEGATIVE); NITRITE, URINE Negative (NEGATIVE); PH,URINE 5.5 (5.0-8.0); PROTEIN,URINE 30 mg/dl (NEGATIVE); UGLUCOSE Negative (NEGATIVE); UROBILINOGEN,URINE 0.2 EU/dL (0.2)
[2019-02-01 14:08] LABS: BACTERIA,URINE Few /HPF (None Seen); SQUAMOUS EPITHELIAL CELL,UR Few /HPF (None Seen)
--- NOTE | 2019-02-01 14:13 | NUR ---
CALLED GAMEPLAY PROGRAMMER SURGEON FOR A DR TO
[2019-02-01] MEDS ORDERED: POTASSIUM CHLORIDE 20 MEQ TAB.PRT.SR PO ONE ×2 (14:20→14:30)
[2019-02-01] MEDS ORDERED: CT SWABBABLE VALVE TRANS SET 1 EA INFUS.SET MC ONE (14:39)
[2019-02-01] MEDS ORDERED: IV NS 0.9% 250 ML IV ONE (14:39)
[2019-02-01] MEDS ORDERED: IOHEXOL-300 100 ML VIAL IV ONE (14:39)
--- NOTE | 2019-02-01 15:28 | NUR ---
CALLED DR RADFORD FOR A DR TO
[2019-02-01] MEDS ORDERED: PIPERACILLIN /TAZOBACTAM 3.375 G in IV D5W 50 ML IV ONE (16:00)
[2019-02-01] MEDS ORDERED: HYDR-4384 PO (16:04)
[2019-02-01] MEDS ORDERED: SIME80TA15 PO (16:04)
[2019-02-01] MEDS ORDERED: ASPI-992 PO (16:04)
[2019-02-01] MEDS ORDERED: LACT10SO PO (16:06)
--- NOTE | 2019-02-01 16:09 | NUR ---
CALLED HOUSE SUP FOR MS BED
--- NOTE | 2019-02-01 16:16 | NUR ---
CALLED DR RADFORD'S PA, GODFREY ASKING TO GET A HOLD OF DR RADFORD. AWAITING CALL BACK
--- NOTE | 2019-02-01 16:19 | NUR ---
CALLED ORTHODONTIC BAND MAKER SURGEON FOR A DR TO
--- NOTE | 2019-02-01 16:56 | NUR ---
309-1 GIVEN. BAILEY IS RN
--- NOTE | 2019-02-01 17:17 | NUR ---
GIVEN REPORT TO BAILEY RN FOR 309-BED 1.
[2019-02-01] MEDS ORDERED: LIDOCAINE 2% JEL UROJET 10 ML MM ONE ×2 (17:25→17:30)
--- NOTE | 2019-02-01 17:45 | NUR ---
NG tube 16fr placed.
--- NOTE | 2019-02-01 18:19 | NUR ---
power of collections attorney, joao porter [phone]
[2019-02-01] MEDS ORDERED: MAGNESIUM HYDROXIDE 30 ML UDC PO PRN (19:00)
[2019-02-01] MEDS ORDERED: ONDANSETRON HCL/PF 4 MG/2 ML VIAL IVP PRN (19:00)
[2019-02-01] MEDS ORDERED: MAG HYDROX/AL HYDROX/SIMETH 30 ML UDC PO PRN (19:00)
[2019-02-01] MEDS ORDERED: Z GUARD REMEDY 2 OZ OINT TP PRN (19:00)
[2019-02-01] MEDS ORDERED: ACETAMINOPHEN 325 MG TABLET PO PRN (19:00)
--- NOTE | 2019-02-01 19:45 | NUR ---
MS BLENDER SNUFF NOTES RECEIVED PATIENT FROM ER VIA [facility] WITH 2 ER STAFF, ALERT AND ORIENTED X 4. VERBALLY RESPONSIVE AND ABLE TO FOLLOW DIRECTIONS. BREATHING REGULAR AND UNLABORED ON ROOM AIR. NASOGASTRIC TUBE INTACT AND PATENT WITH GREENISH OUTPUT NOTED ON THE TUBE. CHECKED FOR PLACEMENT AND PLACED ON LOW INTERMITTENT SUCTION. RIGHT AC G 20 IV LINE INTACT AND PATENT FLUSHING WELL. STARTED ON NORMAL SALINE AT 100CC/HR, INFUSING WELL WITH NO BLEEDING OR S/S OF INFILTRATION SEEN. BODY ASSESSMENT DONE, OBSERVED WITH LEFT ANKLE DRY SCAB AND ABDOMINAL POST SURGICAL SITE WITH UMAIR. PHOTO TAKEN, ATTACHED TO THE CHART. BED LOW AND LOCKED ON SEMI FOWLERS POSITION. WILL CONTINUE TO MONITOR.
[2019-02-01 20:00] VITALS: BP 130/77
[2019-02-01] MEDS: IV NS 0.9% 1,000 ML IV PRN (21:19)
--- NOTE | 2019-02-01 21:45 | NUR ---
MS RN NOTES COMPLAINED OF 8/10 LOWER ABDOMINAL PAIN, NOTED WITH FACIAL GRIMACING GUARDING AND IRRITABILITY. MORPHINE 2MG IV GIVEN. WILL CONTINUE TO MONITOR.
[2019-02-01] MEDS: MORPHINE SULFATE INJ 2 MG/ML DISP.SYRIN IV PRN (21:49)
--- NOTE | 2019-02-01 22:50 | NUR ---
MS RN NOTES 1HR POST MORPHINE ADMINISTRATION, PATIENT REPORTED PAIN SCALE OF 2/10 STILL ON LOWER ABDOMINAL AREA. ICE PACK OFFERED, HEAD OF BED LOWERED. WILL CONTINUE TO MONITOR.
--- NOTE | 2019-02-02 06:33 | NUR ---
MS RN CLOSING NOTES PATIENT IN BED, ALERT AND ORIENTED X 4. VERBALLY RESPONSIVE AND ABLE TO FOLLOW DIRECTIONS. BREATHING REGULAR AND UNLABORED ON ROOM AIR. NASOGASTRIC TUBE INTACT AND PATENT WITH GREENISH OUTPUT IN SCANT AMOUNT. MAINTAINED ON LOW INTERMITTENT SUCTION. SUCTION CANISTER AND TUBING CHANGED. RIGHT AC G 20 IV LINE INTACT AND PATENT INFUSING WELL WITH NO BLEEDING OR S/S OF INFILTRATION/INFECTION SEEN. MAINTAINED ON NPO. BED LOW AND LOCKED ON SEMI FOWLERS POSITION. WILL ENDORSE TO MORNING SHIFT FOR AM LABS AND KRISTOFER.
[2019-02-02 06:55] LABS: BASOPHILS % (AUTO) 0.2 % (0.0-2.0); HEMATOCRIT 29 % (33-45); HEMOGLOBIN 9.9 g/dL (11.5-14.8); LYMPHOCYTES # (AUTO) 0.6 /CMM (0.8-4.8); LYMPHOCYTES % (AUTO) 5.7 % (20.0-44.0); MEAN CORPUSCULAR HGB CONC 34 g/dl (31.0-36.0); MEAN CORPUSCULAR VOLUME 91 fL (82-100); MONOCYTES # (AUTO) 0.8 /CMM (0.1-1.30); MONOCYTES % (AUTO) 7.2 % (2.0-12.0); NEUTROPHILS # (AUTO) 9.8 /CMM (1.8-8.9); NEUTROPHILS % (AUTO) 85.9 % (43.0-81.0); PLATELET COUNT (AUTO) 325 /CMM (150-450); RED BLOOD CELL COUNT(AUTO) 3.25 MIL/uL (4.0-5.2); WHITE BLOOD COUNT (AUTO) 11.4 K/uL (4.3-11.0)
[2019-02-02 07:19] LABS: CALCIUM, SERUM 7.8 mg/dL (8.5-10.1); CREATININE 0.6 mg/dL (0.6-1.3); MAGNESIUM 1.9 mg/dL (1.8-2.4); PHOSPHORUS 1.9 mg/dL (2.5-4.9); POTASSIUM 3.1 mmol/L (3.5-5.1)
[2019-02-02 08:00] VITALS: BP 130/72
--- NOTE | 2019-02-02 08:05 | NUR ---
ms rn received on bed, awake,alert,oriented x4, not in any form of distress, respirations even and unlabored,no sob noted, lungs are clear,abdomen soft, w/ ngt connected to low intermitent suction w/ greenish color output,will monitor patient' condition.
--- NOTE | 2019-02-02 08:23 | NUR ---
ms jeffrey was seen by dr. marisela meyer/ orders made and carried out.
[2019-02-02] MEDS: IV NS 0.9% 1,000 ML IV PRN ×2 (08:38→21:23)
[2019-02-02] MEDS ORDERED: POTASSIUM CHLORIDE 20 MEQ TAB.PRT.SR PO SCH (10:30)
[2019-02-02] MEDS: Potassium Chloride 10 MEQ, LIDOCAINE HCL/PF 1% 1 ML in IV D5W 50 ML IV SCH ×2 (12:24→13:05)
--- NOTE | 2019-02-02 13:00 | NUR ---
ms rn dr. greene called and ordered upper gi serires before he will see patient.
[2019-02-02] MEDS ORDERED: Sodium Phosphate 15 MMOL in IV D5W 250 ML IV ONE (15:00)
[2019-02-02 16:00] VITALS: BP 123/69
[2019-02-02] MEDS ORDERED: DIATR MEGLU/DIATRIZOATE SODIUM 120 ML BOTTLE (GASTROGRAPHIN) ONE ×2 (16:16→18:31)
--- NOTE | 2019-02-02 18:50 | NUR ---
ms rn gastrographine given, will monitor patient for x rays.all needs attended, endorsed to date night caregiver to caLL DR. JOE FOR SBFT RESULT.
[2019-02-02] MEDS: MORPHINE SULFATE INJ 2 MG/ML DISP.SYRIN IV PRN (19:01)
--- NOTE | 2019-02-02 19:33 | NUR ---
MS RN OPENING NOTES RECEIVED PATIENT FROM MORNING SHIFT, ALERT AND ORIENTED X 4. VERBALLY RESPONSIVE AND ABLE TO FOLLOW DIRECTIONS. BREATHING REGULAR AND UNLABORED ON ROOM AIR. NASOGASTRIC TUBE INTACT AND PATENT WITH GREENISH OUTPUT IN SCANT AMOUNT. LOW INTERMITTENT SUCTION ON HOLD FOR SMALL BOWEL FOLLOW THROUGH XRAY. RIGHT AC G 20 IV LINE INTACT AND PATENT INFUSING WELL WITH NO BLEEDING OR S/S OF INFILTRATION SEEN, ON NORMAL SALINE AT 100CC/HR. SMALL BOWEL FOLLOW THROUGH XRAY STARTED. BED LOW AND LOCKED ON SEMI FOWLERS POSITION. WILL CONTINUE TO MONITOR.
[2019-02-02 20:00] VITALS: BP 143/77
--- NOTE | 2019-02-02 23:20 | NUR ---
RN NOTES PT. NG-TUBE WAS ACCIDENTALLY PULLED OUT AND PT WAS REFUSING TO BE REINSERTED.. CHARGE NURSE MADE AWARE
--- NOTE | 2019-02-03 01:30 | NUR ---
MS RN NOTES INFORMED REGARDING SMALL BOWEL FOLLOW THROUGH RESULT AND PATIENT ACCIDENTALLY PULLING OUT NG TUBE, REFUSED NGT REINSERTION. AWAITING FOR RESPONSE.
--- NOTE | 2019-02-03 06:13 | NUR ---
MS RN NOTES SPOKE TO , RELAYED SMALL BOWEL FOLLOW THROUGH RESULT WITH NO NEW ORDER; MADE AWARE OF NG TUBE ACCIDENTAL DISLODGED WITH PATIENT REFUSED FOR REINSERTION. WILL CONTINUE TO MONITOR
--- NOTE | 2019-02-03 06:32 | NUR ---
MS RN CLOSING NOTES PATIENT IN BED, ALERT AND ORIENTED X 4. VERBALLY RESPONSIVE AND ABLE TO FOLLOW DIRECTIONS. BREATHING REGULAR AND UNLABORED ON ROOM AIR. NASOGASTRIC TUBE DISLODGED, CANISTER AND TUBING CHANGED. NOTED WITH 10CC GREENISH OUTPUT ON CANISTER. RIGHT AC G 20 IV LINE INTACT AND PATENT INFUSING WELL WITH NO BLEEDING OR S/S OF INFILTRATION/INFECTION SEEN. MAINTAINED ON NPO. BED LOW AND LOCKED ON SEMI FOWLERS POSITION. WILL ENDORSE TO MORNING SHIFT FOR AM LABS AND KRISTOFER.
[2019-02-03 06:42] LABS: CALCIUM, SERUM 8.1 mg/dL (8.5-10.1); CREATININE 0.5 mg/dL (0.6-1.3)
[2019-02-03 06:52] LABS: POTASSIUM 2.8 mmol/L (3.5-5.1)
[2019-02-03 07:12] LABS: BASOPHILS % (AUTO) 0.2 % (0.0-2.0); EOSINOPHILS % (AUTO) 0.7 % (0.0-6.0); HEMATOCRIT 30 % (33-45); HEMOGLOBIN 10.2 g/dL (11.5-14.8); LYMPHOCYTES # (AUTO) 0.6 /CMM (0.8-4.8); LYMPHOCYTES % (AUTO) 4.6 % (20.0-44.0); MEAN CORPUSCULAR HGB CONC 34 g/dl (31.0-36.0); MEAN CORPUSCULAR VOLUME 90 fL (82-100); MONOCYTES # (AUTO) 0.8 /CMM (0.1-1.30); MONOCYTES % (AUTO) 5.9 % (2.0-12.0); NEUTROPHILS # (AUTO) 11.3 /CMM (1.8-8.9); NEUTROPHILS % (AUTO) 88.6 % (43.0-81.0); PLATELET COUNT (AUTO) 311 /CMM (150-450); RED BLOOD CELL COUNT(AUTO) 3.36 MIL/uL (4.0-5.2); WHITE BLOOD COUNT (AUTO) 12.7 K/uL (4.3-11.0)
--- NOTE | 2019-02-03 07:15 | NUR ---
MS RN NOTES RELAYED POTASSIUM LEVEL OF 2.8 TO WITH ORDERS TO GIVE POTASSIUM CHLORIDE 40MEQ IV ONE TIME ONLY NOTED AND CARRIED OUT. WILL ENDORSE TO MORNING SHIFT FOR KRISTOFER.
[2019-02-03] MEDS ORDERED: POTASSIUM CHLORIDE 10 MEQ/50 ML PREMIXED IVPB FOR PERIPHERAL LINE IV ONE (07:30)
--- NOTE | 2019-02-03 07:43 | NUR ---
M/S RN NOTES PATIENT RESTING, LYING IN BED. PATIENT WITH NO RESPIRATORY DISTRESS, NO C/O PAIN AT THIS TIME. PATIENT'S IV OF NS RUNNING AT 100ML/HR ON THE RAC #20G INTACT AND PATENT, NO REDNESS, NO INFILTRATION. PATIENT'S DR. CURRY AWARE OF PATIENT'S POTASSIUM LEVEL OF 2.8, GAVE ORDERS AND WILL CARRY OUT. PATIENT'S NEEDS ATTENDED. BED ON LOWEST LOCKED POSITION, CALL LIGHT WITHIN REACH. WILL CONTINUE TO MONITOR.
[2019-02-03 08:00] VITALS: BP 127/67
[2019-02-03] MEDS: Potassium Chloride 10 MEQ, LIDOCAINE HCL/PF 1% 1 ML in IV D5W 50 ML IV SCH ×4 (08:41→12:15)
[2019-02-03] MEDS: MORPHINE SULFATE INJ 2 MG/ML DISP.SYRIN IV PRN (08:50)
[2019-02-03 16:00] VITALS: BP 147/84
--- NOTE | 2019-02-03 19:03 | NUR ---
M/S RN NOTES PATIENT AWAKE, LYING IN BED, IN NO RESPIRATORY DISTRESS, NO C/O PAIN AT THIS TIME. PATIENT'S NEEDS ATTENDED. IV NS RUNNING AT 100ML/HR ON RHE RAC #20G, INTACT AND PATENT. PATIENT'S SURGERY TOMORROW PER DR. DEL ROSARIO AT 1200, CONSENT SIGNED BY PATIENT. BED ON LOWEST LOCKED POSITION, CALL LIGHT WITHIN REACH. WILL ENDORSE TO ONCOMING NURSE.
--- NOTE | 2019-02-03 19:57 | NUR ---
MS/RN RECEIVE PATIENT APPEAR SLEEPING, APPEAR COMFORTABLE, NO SIGNS OF DISTRESS NOTED, CALL LIGHT IN REACH. WILL MONITOR.
[2019-02-03 20:00] VITALS: BP 135/75
[2019-02-03] MEDS: LORAZEPAM INJ 2 MG/ML VIAL IV PRN (22:31)
[2019-02-03] MEDS: IV NS 0.9% 1,000 ML IV PRN (22:34)
--- NOTE | 2019-02-03 23:34 | NUR ---
MS/RN PATIENT IS SLEEPING AT THIS TIME, APPEAR COMFORTABLE, NO SIGNS OF DISTRESS NOTED, CALL LIGHT IN REACH. WILL CONTINUE TO MONITOR.
[2019-02-04] MEDS: IV NS 0.9% 1,000 ML IV PRN ×2 (06:43→20:06)
[2019-02-04 07:41] LABS: BASOPHILS % (AUTO) 0.5 % (0.0-2.0); EOSINOPHILS % (AUTO) 0.9 % (0.0-6.0); HEMATOCRIT 31 % (33-45); HEMOGLOBIN 10.3 g/dL (11.5-14.8); LYMPHOCYTES # (AUTO) 0.8 /CMM (0.8-4.8); LYMPHOCYTES % (AUTO) 8.1 % (20.0-44.0); MEAN CORPUSCULAR HGB CONC 34 g/dl (31.0-36.0); MEAN CORPUSCULAR VOLUME 90 fL (82-100); MONOCYTES # (AUTO) 0.6 /CMM (0.1-1.30); NEUTROPHILS # (AUTO) 8.3 /CMM (1.8-8.9); NEUTROPHILS % (AUTO) 84.5 % (43.0-81.0); PLATELET COUNT (AUTO) 301 /CMM (150-450); RED BLOOD CELL COUNT(AUTO) 3.43 MIL/uL (4.0-5.2); WHITE BLOOD COUNT (AUTO) 9.8 K/uL (4.3-11.0)
[2019-02-04 08:00] VITALS: BP 141/80
[2019-02-04 08:14] LABS: CALCIUM, SERUM 7.7 mg/dL (8.5-10.1); CREATININE 0.4 mg/dL (0.6-1.3); MAGNESIUM 1.6 mg/dL (1.8-2.4); PHOSPHORUS 1.9 mg/dL (2.5-4.9)
[2019-02-04 08:21] LABS: POTASSIUM 2.8 mmol/L (3.5-5.1)
--- NOTE | 2019-02-04 08:30 | NUR ---
NPO THIS AM,DR. CURRY HERE AND AWARE OF NEED FOR TODAY'S LABS.
[2019-02-04] MEDS ORDERED: POTASSIUM CL. PREMIX PERIPHER. 50 ML IV SCH (09:30)
--- NOTE | 2019-02-04 09:30 | NUR ---
DR. CURRY TEXTED ABNORMAL LABS.TO FOLLOW UP.
[2019-02-04] MEDS: Potassium Chloride 10 MEQ, LIDOCAINE HCL/PF 1% 1 ML in IV D5W 50 ML IV SCH ×5 (09:38→14:06)
--- NOTE | 2019-02-04 10:00 | NUR ---
PHARMACY ENTERING ORDERS FOR ABN. LAB REPLACEMENTS.AT THIS TIME SURG. CANCELLED.RN ADDITIONALLY TEXTING ALL INFO TO SURGEON DR. DEL ROSARIO.
[2019-02-04] MEDS ORDERED: K PHOS NEUTRAL 250 MG TABLET PO ONE (11:00)
--- NOTE | 2019-02-04 11:00 | NUR ---
DR. DEL ROSARIO ORDERING SMALL BOWEL FOLLOW THROUGH AND UGI WITH GASTROGRAFFIN.
[2019-02-04 12:23] LABS: CALCIUM, SERUM 7.6 mg/dL (8.5-10.1); CREATININE 0.5 mg/dL (0.6-1.3); POTASSIUM 3.3 mmol/L (3.5-5.1)
--- NOTE | 2019-02-04 12:30 | NUR ---
RADIOLOGIST NOT AVAILABLE TO DO GI X-RAY PER EMPLOYEE RELATIONS ADMINISTRATOR.DR. DEL ROSARIO NOTIFIED OF THIS.
[2019-02-04] MEDS: Magnesium 1GM/D5W 100ML PREMIX 100 ML IV SCH ×2 (15:40→19:04)
[2019-02-04 16:00] VITALS: BP 144/79
--- NOTE | 2019-02-04 17:30 | NUR ---
MERVIN ORDERED BY DR. DEL ROSARIO.
[2019-02-04] MEDS: METRONIDAZOLE 500MG/ NS 100ML 500 MG in PREMIX 1 EA IV SCH (17:51)
--- NOTE | 2019-02-04 18:00 | NUR ---
PT HAS HAD IV REPLACEMENTS FOR MG,AND POTASSIUM.ADDITIONALLY NEW TO START ON FLAGYL.
--- NOTE | 2019-02-04 19:00 | NUR ---
PT. HAS HAD NEUTRA PHOS 500 MG FOR LOW PHOSPHOROUS LEVEL.AWARE NOW PT. TO HAVE SURGERY TOMORROW.
[2019-02-04 20:00] VITALS: BP 133/75
[2019-02-04] MEDS: POTASSIUM CL. PREMIX PERIPHER. 50 ML IV SCH ×3 (20:37→22:43)
--- NOTE | 2019-02-04 20:49 | NUR ---
MS/RN RECEIVED A CALL FROM DR. DEL ROSARIO WITH ORDERS RECEIVED: PROCEDURE CONSENT FOR EXPLORATORY LAPAROTOMY FOR RELIEF OF SMALL BOWEL OBSTRUCTION, POSSIBLE BOWEL RESECTION, AND NPO AFER MIDNIGHT. ORDERS CARRIED OUT.
[2019-02-04] MEDS: LORAZEPAM INJ 2 MG/ML VIAL IV PRN (22:15)
[2019-02-05] MEDS: POTASSIUM CL. PREMIX PERIPHER. 50 ML IV SCH ×2 (00:08→02:17)
[2019-02-05] MEDS: METRONIDAZOLE 500MG/ NS 100ML 500 MG in PREMIX 1 EA IV SCH ×3 (01:05→16:40)
--- NOTE | 2019-02-05 06:09 | NUR ---
MS/RN PATIENT IS AWAKE, COMFORTABLE, NO C/O PAIN, NO DISTRESS NOTED, HAD A GOOD SLEEP THE WHOLE SHIFT, ALL NEEDS ATTENDED AT THIS TIME, WILL CONTINUE TO MONITOR.
[2019-02-05] MEDS: IV NS 0.9% 1,000 ML IV PRN ×2 (07:06→21:33)
[2019-02-05 07:08] LABS: CALCIUM, SERUM 7.5 mg/dL (8.5-10.1); CREATININE 0.4 mg/dL (0.6-1.3); POTASSIUM 3.9 mmol/L (3.5-5.1)
[2019-02-05 07:22] LABS: BASOPHILS # (AUTO) 0.1 /CMM (0.0-0.2); BASOPHILS % (AUTO) 0.6 % (0.0-2.0); EOSINOPHILS % (AUTO) 1.2 % (0.0-6.0); HEMATOCRIT 31 % (33-45); HEMOGLOBIN 10.5 g/dL (11.5-14.8); LYMPHOCYTES # (AUTO) 0.9 /CMM (0.8-4.8); LYMPHOCYTES % (AUTO) 8.5 % (20.0-44.0); MEAN CORPUSCULAR HGB CONC 34 g/dl (31.0-36.0); MEAN CORPUSCULAR VOLUME 90 fL (82-100); MONOCYTES # (AUTO) 0.7 /CMM (0.1-1.30); MONOCYTES % (AUTO) 6.2 % (2.0-12.0); NEUTROPHILS # (AUTO) 8.9 /CMM (1.8-8.9); NEUTROPHILS % (AUTO) 83.5 % (43.0-81.0); PLATELET COUNT (AUTO) 295 /CMM (150-450); RED BLOOD CELL COUNT(AUTO) 3.44 MIL/uL (4.0-5.2); WHITE BLOOD COUNT (AUTO) 10.6 K/uL (4.3-11.0)
--- NOTE | 2019-02-05 07:30 | NUR ---
MS RN OPENING NOTES RECEIVED PATIENT IN BED RESTING COMFORTABLY IN MODERATE HIGH BACK REST. A/O X4. NO C/O PAIN AT THIS TIME. PATIENT'S IV OF NS RUNNING AT 100ML/HR ON THE RFA. INTACT AND PATENT. SAFETY MEASURES IN PLACE, BED ON LOWEST LOCKED POSITION WITH SIDE RAILS UP X 2, CALL LIGHT WITHIN REACH. WILL CONTINUE TO MONITOR.
[2019-02-05 08:00] VITALS: BP 128/76
[2019-02-05] MEDS ORDERED: ANESTHESIA TRAY IN PYXIS 1 EA TRAY MC ONE (08:25)
[2019-02-05] MEDS ORDERED: BUPIVACAINE MPF 0.5% W/EPI INJ 30 ML VIAL ONE (08:26)
[2019-02-05] MEDS ORDERED: LIDOCAINE HCL/MPF 1% 30 ML VIAL IJ ONE (08:26)
[2019-02-05] MEDS ORDERED: MIDAZOLAM HCL 2 MG/2ML VIAL ONE (08:53)
[2019-02-05] MEDS ORDERED: FENTANYL PF 250MCG/5ML AMPUL ONE ×2 (08:54)
[2019-02-05] MEDS ORDERED: ROCURONIUM BROMIDE 50 MG/5 ML ONE (08:55)
[2019-02-05] MEDS ORDERED: FENTANYL PF 100MCG/2ML AMPUL ONE (08:55)
[2019-02-05] MEDS ORDERED: FAMOTIDINE/PF INJ 20 MG/2 ML VIAL IV ONE (08:55)
[2019-02-05] MEDS ORDERED: MEPERIDINE HCL/PF 100 MG/ML DISP.SYRIN ONE (08:56)
--- NOTE | 2019-02-05 09:00 | NUR ---
MS RN NOTES PATIENT LEFT IN STABLE CONDITION FOR SURGERY, PICKED UP BY HOSPITAL STAFF VIA HOSPITAL BED.
[2019-02-05] MEDS ORDERED: SEVOFLURANE 250 ML BOTTLE IH ONE (09:23)
[2019-02-05] MEDS ORDERED: BACITRACIN ZINC OINT PACKET 1 EA PACKET TP ONE (10:53)
--- NOTE | 2019-02-05 12:05 | NUR ---
MS RN NOTES PATIENT ARRIVED AT UNIT WITH HOSPITAL STAFF VIA HOSPITAL BED FROM SURGERY. REPORT RECEIVED FROM AURELIO. ON OXYGEN 3LPM VIA NC. WITH ACCESS ON RFA #22 AND RFA #18 INFUSING WELL. NOTED WITH PAUL CATHETER. NO ACUTE DISTRESS NOTED AT THIS TIME. PATIENT DENIES ANY PAIN OR DISCOMFORT AT THIS TIME. PATIENT WITH NEW ORDERS FROM DR. DEL ROSARIO, NOTED AND CARRIED OUT. WILL CONTINUE TO MONITOR.
[2019-02-05] MEDS ORDERED: HYDROMORPHONE 1 MG/1 ML DISP.SYRIN IV PRN (12:30)
[2019-02-05] MEDS ORDERED: K PHOS NEUTRAL 250 MG TABLET PO ONE (15:00)
[2019-02-05] MEDS ORDERED: NEUTRA PHOS 1 POWD.PACKET PO ONE (15:00)
[2019-02-05 16:00] VITALS: BP 86/51
--- NOTE | 2019-02-05 16:00 | NUR ---
MS RN NOTES INFORMED DR. CURRY REGARDING PATIENT STATUS. CAME BACK FROM SURGERY AND ARRIVED AT THE FLOOR AT 12:05. PATIENTS BP IS ON THE 80'S. PATIENT'S LATEST BP IS 87/51. PATIENT IS COMPLAINING OF PAIN ON ABDOMEN. ON IV FLUIDS OF 0.9% NS AT 100ML/HR. DR. CURRY ORDERED 0.9% NS 500 ML TO BE GIVEN BOLUS AND MORPHINE 2MG IV Q4H NEEDED FOR PAIN. ORDERS MADE AND CARRIED OUT. WILL CONTINUE TO MONITOR.
[2019-02-05] MEDS ORDERED: IV NS 0.9% 500 ML IV ONE ×2 (16:30→17:00)
[2019-02-05] MEDS ORDERED: ANCEF 1 GM/50 ML D5W IV ONE ×2 (17:00)
--- NOTE | 2019-02-05 18:29 | NUR ---
MS RN NOTES DR. DEL ROSARIO CALLED WITH ORDERS TO CHECK MAGNESSIUM LVL IN THE AM AND TO INCREASE IV FLUIDS TO 0.9% NS AT 125ML/HR. ORDERS MADE AND CARRIED OUT.
[2019-02-05] MEDS ORDERED: IV NS 0.9% 1,000 ML BAG IV PRN (19:00)
--- NOTE | 2019-02-05 19:23 | NUR ---
MS RN CLOSING NOTES PATIENT IN BED RESTING COMFORTABLY IN MODERATE HIGH BACK REST. A/O X4. ON PAUL CATHETER, DRAINING FREELY. PATIENT'S IV OF NS RUNNING AT 125ML/HR ON THE RFA. INTACT AND PATENT. S/P EXPLOR. LAP FOR RELIEF OF SMALL BOWEL OBSTRUCTION. SAFETY MEASURES IN PLACE, BED ON LOWEST LOCKED POSITION WITH SIDE RAILS UP X 2, CALL LIGHT WITHIN REACH. 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
--- NOTE | 2019-02-05 19:25 | NUR ---
MS/RN NOTES RECEIVED PT. LYING IN BED. PT. IS AWAKE, ALERT AND ORIENTED X3. BREATHING EVEN AND UNLABORED ON 3LPM O2 VIA NC. NO SOB OR RESPIRATORY DISTRESS NOTED AT THIS TIME. PT. COMPLAINING OF ABDOMINAL PAIN. PER DAYSHIFT NURSE PT. HAS BEEN HAVING DECREASED BLOOD PRESSURE, AWARE, PT. PAIN MEDICATION HAS NOT BEEN GIVEN YET DUE TO DECREASED BP. WILL CONTINUE TO MONITOR PT. BP AND ADMINISTER TO PT. PAIN MEDICATION ORDERED. PT. IS S/P EX LAP TODAY, PT. WITH POST OP DRESSING PRESENT, CLEAN, DRY AND INTACT. NO BLEEDING OR DRAINAGE NOTED AT THIS TIME. PT. WITH PAUL CATHETER PRESENT, PATENT AND INTACT DRAINING CLEAR YELLOW URINE. BED LOCKED AND IN LOWEST POSITION, SIDE RAILS UP X2, BED ALARM ON, CALL LIGHT WITHIN REACH, WILL CONTINUE TO MONITOR.
[2019-02-05 20:11] VITALS: BP 112/63
[2019-02-05] MEDS: HYDROCODONE/APAP 5/325MG 1 EACH TABLET PO PRN (21:33)
[2019-02-06] MEDS: MORPHINE SULFATE INJ 2 MG/ML DISP.SYRIN IV PRN (01:45)
--- NOTE | 2019-02-06 01:45 | NUR ---
MS RN NOTE: COVERING RN, PATIENT COMPLAINS OF ABDOMINAL PAIN 01/17, MORPHINE 2MG IV GIVEN PER MD ORDER. 117/69, HR 93, WILL CONTINUE TO MONITOR.
--- NOTE | 2019-02-06 03:59 | NUR ---
MS/RN NOTES RECEIVED CALL FROM DR. DEL ROSARIO, UPDATED MD ON PT. STATUS, PT. BLOOD PRESSURE INCREASED MOST RECENT BP 117/68 HR 95, PT. PAIN LEVEL DECREASED AFTER RECEIVING PAIN MEDICATION AND PT. WITH GOOD URINE OUTPUT. PER DR. DEL ROSARIO NEW ORDERS: CHANGE IV FLUIDS TO NS @ 75 ML/HR. WILL CARRY OUT ORDER. WILL CONTINUE TO MONITOR.
--- NOTE | 2019-02-06 06:50 | NUR ---
MS/RN NOTES PT. IS SITTING UP IN BED, ALERT AND ORIENTED X3. BREATHING EVEN AND UNLABORED ON 3LPM O2 VIA NC. NO SOB, RESPIRATORY DISTRESS OR COMPLAINTS OF PAIN NOTED AT THIS TIME. PT. WITH PAUL CATHETER PRESENT, PATENT AND INTACT DRAINING CLEAR YELLOW URINE. ALL PT. NEEDS MET. BED LOCKED AND IN LOWEST POSITION, SIDE RAILS UP X2, BED ALARM ON, CALL LIGHT WITHIN REACH, WILL ENDORSE TO DAYSHIFT NURSE FOR CONTINUITY OF CARE.
[2019-02-06] MEDS: LORAZEPAM INJ 2 MG/ML VIAL IV PRN ×2 (06:56→21:46)
--- NOTE | 2019-02-06 07:25 | NUR ---
MS RN OPENING NOTES RECEIVED PATIENT IN BED RESTING COMFORTABLY IN MODERATE HIGH BACK REST. A/O X4. ON OXYGEN 3LPM VIA NC. NOT IN ANY DISTRESS AT THIS TIME. IV FLUIDS OF NS RUNNING AT 75ML/HR ON THE RFA. INTACT AND PATENT. ON PAUL CATHETER, DRAINING WITH YELLOW URINE. SAFETY MEASURES IN PLACE, BED ON LOWEST LOCKED POSITION WITH SIDE RAILS UP X 2, CALL LIGHT WITHIN REACH. WILL CONTINUE TO MONITOR.
[2019-02-06] MEDS: IV NS 0.9% 1,000 ML IV PRN ×2 (07:40→21:54)
[2019-02-06] MEDS: PANTOPRAZOLE 40 MG TABLET.DR PO SCH (07:49)
[2019-02-06 08:00] VITALS: BP 107/65
[2019-02-06 08:03] LABS: CALCIUM, SERUM 7.6 mg/dL (8.5-10.1); CREATININE 0.5 mg/dL (0.6-1.3); MAGNESIUM 1.6 mg/dL (1.8-2.4); PHOSPHORUS 3.4 mg/dL (2.5-4.9); POTASSIUM 3.9 mmol/L (3.5-5.1)
[2019-02-06 08:37] LABS: BASOPHILS % (AUTO) 0.2 % (0.0-2.0); EOSINOPHILS % (AUTO) 0.1 % (0.0-6.0); HEMATOCRIT 32 % (33-45); HEMOGLOBIN 10.8 g/dL (11.5-14.8); LYMPHOCYTES # (AUTO) 0.7 /CMM (0.8-4.8); MEAN CORPUSCULAR HGB CONC 33 g/dl (31.0-36.0); MEAN CORPUSCULAR VOLUME 91 fL (82-100); MONOCYTES # (AUTO) 0.6 /CMM (0.1-1.30); MONOCYTES % (AUTO) 3.4 % (2.0-12.0); NEUTROPHILS # (AUTO) 16.1 /CMM (1.8-8.9); NEUTROPHILS % (AUTO) 92.3 % (43.0-81.0); PLATELET COUNT (AUTO) 292 /CMM (150-450); RED BLOOD CELL COUNT(AUTO) 3.53 MIL/uL (4.0-5.2); WHITE BLOOD COUNT (AUTO) 17.4 K/uL (4.3-11.0)
[2019-02-06] MEDS: HYDROCODONE/APAP 5/325MG 1 EACH TABLET PO PRN ×2 (09:52→14:20)
[2019-02-06] MEDS: Magnesium 1GM/D5W 100ML PREMIX 100 ML IV SCH ×2 (10:41→12:14)
[2019-02-06 16:00] VITALS: BP 117/71
[2019-02-06] MEDS: ENSURE CLEAR 237 ML LIQUID (MIX BERRY) PO SCH (17:42)
--- NOTE | 2019-02-06 18:39 | NUR ---
MS RN CLOSING NOTES PATIENT IN BED RESTING COMFORTABLY IN MODERATE HIGH BACK REST. A/O X4. ON OXYGEN 3LPM VIA NC. NO SOB NOTED THROUGHOUT THE SHIFT. IV FLUIDS OF NS RUNNING AT 75ML/HR ON THE RFA. INTACT AND PATENT. ON PAUL CATHETER, DRAINING WITH YELLOW URINE. SAFETY MEASURES IN PLACE, BED ON LOWEST LOCKED POSITION WITH SIDE RAILS UP X 2, CALL LIGHT WITHIN REACH. WILL ENDORSED TO JOURNALIST NURSE FOR KRISTOFER.
--- NOTE | 2019-02-06 19:10 | NUR ---
MS/RN NOTES RECEIVED PT. SITTING UP IN BED. PT. IS AWAKE, ALERT AND ORIENTED X3. BREATHING EVEN AND UNLABORED ON 3LPM O2 VIA NC. NO SOB, RESPIRATORY DISTRESS OR COMPLAINTS OF PAIN NOTED AT THIS TIME. PT. WITH ABDOMINAL DRESSING PRESENT, CLEAN, DRY AND INTACT. NO BLEEDING OR DRAINAGE NOTED AT THIS TIME. PT. WITH PAUL CATHETER PRESENT, PATENT AND INTACT DRAINING CLEAR YELLOW URINE. BED LOCKED AND IN LOWEST POSITION, SIDE RAILS UP X2, BED ALARM ON, CALL LIGHT WITHIN REACH, WILL CONTINUE TO MONITOR.
[2019-02-06 20:48] VITALS: BP 114/70
[2019-02-07] MEDS: HYDROCODONE/APAP 5/325MG 1 EACH TABLET PO PRN (01:48)
--- NOTE | 2019-02-07 06:22 | NUR ---
MS/RN NOTES PT. IS LYING IN BED RESTING. BREATHING EVEN AND UNLABORED ON 3LPM O2 VIA NC. NO SOB, RESPIRATORY DISTRESS OR COMPLAINTS OF PAIN NOTED AT THIS TIME. PT. WITH ABDOMINAL DRESSING PRESENT, CLEAN, DRY AND INTACT. NO BLEEDING OR DRAINAGE NOTED AT THIS TIME. PT. WITH PAUL CATHETER PRESENT, PATENT AND INTACT DRAINING CLEAR YELLOW URINE. PT. WITH RIGHT FOREARM 22 GAUGE PERIPHERAL IV PRESENT, PATENT AND INTACT ADMINISTERING TO PT. NS @ 75 ML/HR. PT. WITH RIGHT FOREARM 18 GAUGE IV SALINE LOCK PRESENT, PATENT AND INTACT. ALL PT. NEEDS MET. BED LOCKED AND IN LOWEST POSITION, SIDE RAILS UP X2, BED ALARM ON, CALL LIGHT WITHIN REACH, WILL ENDORSE TO DAYSHIFT NURSE FOR CONTINUITY OF CARE.
[2019-02-07 06:49] LABS: BASOPHILS # (AUTO) 0.1 /CMM (0.0-0.2); BASOPHILS % (AUTO) 0.4 % (0.0-2.0); HEMATOCRIT 28 % (33-45); HEMOGLOBIN 9.5 g/dL (11.5-14.8); LYMPHOCYTES # (AUTO) 0.7 /CMM (0.8-4.8); LYMPHOCYTES % (AUTO) 5.5 % (20.0-44.0); MEAN CORPUSCULAR HGB CONC 34 g/dl (31.0-36.0); MEAN CORPUSCULAR VOLUME 90 fL (82-100); MONOCYTES # (AUTO) 0.7 /CMM (0.1-1.30); NEUTROPHILS # (AUTO) 10.7 /CMM (1.8-8.9); NEUTROPHILS % (AUTO) 87.1 % (43.0-81.0); PLATELET COUNT (AUTO) 297 /CMM (150-450); RED BLOOD CELL COUNT(AUTO) 3.13 MIL/uL (4.0-5.2); WHITE BLOOD COUNT (AUTO) 12.3 K/uL (4.3-11.0)
[2019-02-07 06:55] LABS: CALCIUM, SERUM 7.6 mg/dL (8.5-10.1); CREATININE 0.4 mg/dL (0.6-1.3); POTASSIUM 3.3 mmol/L (3.5-5.1)
--- NOTE | 2019-02-07 07:30 | NUR ---
m/s scagliola mechanic: initial assessment received pt in bed awake, a/ox3. dx: s/p exp lap. dressing to abdomen clean and dry. no c/o pain at this time. breakfast served. instructed to call for assistance. will monitor.
[2019-02-07 08:00] VITALS: BP 134/76
[2019-02-07] MEDS: PANTOPRAZOLE 40 MG TABLET.DR PO SCH (08:03)
[2019-02-07] MEDS: ENSURE CLEAR 237 ML LIQUID (MIX BERRY) PO SCH ×4 (08:05→17:00)
--- NOTE | 2019-02-07 08:55 | NUR ---
m/s visual inspector: notes f/c removed by female nurse per pt's request, finesse. well. instructed to call for assistance. will monitor.
[2019-02-07] MEDS: MORPHINE SULFATE INJ 2 MG/ML DISP.SYRIN IV PRN (10:34)
--- NOTE | 2019-02-07 10:34 | NUR ---
m/s automation engineering technician: notes c/o 11/16 abdominal pain, medicated with 2mg ivp by rn. instructed to call for assistance. will continue to monitor.
[2019-02-07] MEDS ORDERED: POTASSIUM CHLORIDE 20 MEQ POWDER PACKET PO SCH (11:00)
[2019-02-07] MEDS ORDERED: GUAIFENESIN 300 MG/15 ML UDC PO PRN (11:00)
--- NOTE | 2019-02-07 11:04 | NUR ---
m/s advanced registered nurse: notes pt verbalized relief of pain. pt still concern not passing gas, encourage to get out of bed and ambulate, but pt has low motivation. bs present to all quadrants. instructed to call for assistance. will continue to monitor.
[2019-02-07] MEDS: IV NS 0.9% 1,000 ML IV PRN (11:30)
--- NOTE | 2019-02-07 12:08 | NUR ---
m/s staff nurse icu resource team: notes pt not tolerating clear clear liquid diet, still no bowel movement at this time. dr. greene aware and will see pt this afternoon as stated.
--- NOTE | 2019-02-07 14:00 | NUR ---
m/s sheet rock applicator: notes pt remains with low motivation and not eating her clear liquid diet. pt now passing gas as stated. encourage to ambulate ad carin. will continue to monitor.
[2019-02-07 16:00] VITALS: BP 130/70
--- NOTE | 2019-02-07 16:00 | NUR ---
m/s evaporator repairer: notes resting comfortable in bed. still refusing to get out of bed despite encouragement from staff. instructed to call for assistance. will monitor.
--- NOTE | 2019-02-07 18:10 | NUR ---
m/s traffic director: notes dr. greene at bedside and pt wants to have regular food, pt stating she is passing gas now with verbal order to advance her diet to soft regular. md aware that pt is not eating her clear liquid diet, but since pt is passing gas pt can have regular food as stated by dr. greene. order carried out by cn. kitchen called for tray. needs attended. in no apparent distress noted.
--- NOTE | 2019-02-07 18:25 | NUR ---
m/s barrel builder: notes received verbal order from dr. greene to add multivitamin to iv daily. order read back and carried out.
[2019-02-07] MEDS ORDERED: IV NS 0.9% 1,000 ML IV PRN (18:30)
--- NOTE | 2019-02-07 19:15 | NUR ---
m/s institutional commodity analyst: notes report given to shahla (rn) for continuity of care.
--- NOTE | 2019-02-07 19:18 | NUR ---
MS/RN NOTES RECEIVED PT. SITTING UP IN BED. PT. IS AWAKE, ALERT AND ORIENTED X3. BREATHING EVEN AND UNLABORED ON 3LPM O2 VIA NC. NO SOB, RESPIRATORY DISTRESS OR COMPLAINTS OF PAIN NOTED AT THIS TIME. PT. WITH ABDOMINAL DRESSING PRESENT, CLEAN, DRY AND INTACT. NO BLEEDING OR DRAINAGE NOTED AT THIS TIME. BED LOCKED AND IN LOWEST POSITION, SIDE RAILS UP X2, BED ALARM ON, CALL LIGHT WITHIN REACH, WILL CONTINUE TO MONITOR.
[2019-02-07 20:03] VITALS: BP 121/74
[2019-02-07] MEDS: MVI ADULT 10ML VIAL = 1AMP 10 ML in IV NS 0.9% 1,000 ML IV PRN (20:27)
[2019-02-07] MEDS: LORAZEPAM INJ 2 MG/ML VIAL IV PRN (22:52)
--- NOTE | 2019-02-08 02:20 | NUR ---
MS/RN NOTES GAVE REPORT AND ENDORSED PT. TO DIANELYS JOHNSON FOR CONTINUITY OF CARE.
--- NOTE | 2019-02-08 02:25 | NUR ---
MS RN NOTES Report received from DIANELYS Greene. Received patient resting in bed, appears comfortable. Breathing even and unlabored. Not in any distress. On O2 at 3LPM. No SOB or respiratory distress noted. Peripheral IV infusing at 75mL/hr. Safety measures in place. Call light within reach, bed in low, locked position. Will continue to monitor accordingly
[2019-02-08] MEDS: LORAZEPAM INJ 2 MG/ML VIAL IV PRN ×2 (06:00→21:50)
--- NOTE | 2019-02-08 06:00 | NUR ---
RN NOTES Patient c/o being anxious. VS WNL. Ativan 0.5mg IVP given as ordered.
[2019-02-08 06:20] LABS: BASOPHILS % (AUTO) 0.4 % (0.0-2.0); EOSINOPHILS % (AUTO) 1.2 % (0.0-6.0); HEMATOCRIT 29 % (33-45); HEMOGLOBIN 9.7 g/dL (11.5-14.8); LYMPHOCYTES # (AUTO) 0.6 /CMM (0.8-4.8); MEAN CORPUSCULAR HGB CONC 34 g/dl (31.0-36.0); MEAN CORPUSCULAR VOLUME 91 fL (82-100); MONOCYTES # (AUTO) 0.7 /CMM (0.1-1.30); MONOCYTES % (AUTO) 6.6 % (2.0-12.0); NEUTROPHILS # (AUTO) 8.8 /CMM (1.8-8.9); NEUTROPHILS % (AUTO) 85.8 % (43.0-81.0); PLATELET COUNT (AUTO) 331 /CMM (150-450); RED BLOOD CELL COUNT(AUTO) 3.16 MIL/uL (4.0-5.2); WHITE BLOOD COUNT (AUTO) 10.2 K/uL (4.3-11.0)
--- NOTE | 2019-02-08 06:28 | NUR ---
MS RN CLOSING NOTES Patient sleeping in bed, appears comfortable. Breathing even and unlabored. Not in any distress. On O2 at 3LPM. No complaints at this time. Peripheral IV infusing at 75mL/hr. All needs attended. Turned and reposition. Safety measures in place; call light within reach, bed in low, locked position. Will endorse KRISTOFER to oncoming RN
[2019-02-08 06:56] LABS: CALCIUM, SERUM 8.1 mg/dL (8.5-10.1); CREATININE 0.5 mg/dL (0.6-1.3); MAGNESIUM 1.6 mg/dL (1.8-2.4); PHOSPHORUS 2.5 mg/dL (2.5-4.9); POTASSIUM 3.2 mmol/L (3.5-5.1)
--- NOTE | 2019-02-08 07:30 | NUR ---
RN MS NOTES PT IN BED, AWAKE, ALERT AND ORIENTED, NO COMPLAINT OF PAIN AT THIS TIME, NOT IN DISTRESS, CALL LIGHT WITHIN REACH, IV FLUIDS INFUSING WELL, ASSISTED WITH BREAKFAST, KEPT COMFORTABLE, NEEDS ATTENDED.
[2019-02-08 08:00] VITALS: BP 123/68
[2019-02-08] MEDS: PANTOPRAZOLE 40 MG TABLET.DR PO SCH (08:26)
[2019-02-08] MEDS: ENSURE CLEAR 237 ML LIQUID (MIX BERRY) PO SCH (08:27)
[2019-02-08] MEDS ORDERED: POTASSIUM CL. PREMIX PERIPHER. 50 ML IV SCH (09:00)
[2019-02-08] MEDS: IV NS 0.9% 1,000 ML IV PRN (09:52)
--- NOTE | 2019-02-08 10:01 | NUR ---
WOUND CARE CONSULT: PT REFUSED SKIN ASSESSMENT. CURRENT VAISHALI SCORE IS 18. WILL SEE PRN.
[2019-02-08] MEDS: ENSURE ENLIVE 237 ML LIQUID (VANILLA) PO SCH ×3 (10:03→16:52)
[2019-02-08] MEDS: Potassium Chloride 10 MEQ, LIDOCAINE HCL/PF 1% 1 ML in IV D5W 50 ML IV SCH ×4 (10:05→16:52)
[2019-02-08] MEDS: Magnesium 1GM/D5W 100ML PREMIX 100 ML IV SCH ×2 (10:07→11:43)
--- NOTE | 2019-02-08 10:34 | NUR ---
RN MS NOTES PT SEEN BY DR. GOMEZ, PLAN OF CARE DISCUSSED WITH PT, VERBALIZED UNDERSTANDING.
[2019-02-08 16:00] VITALS: BP 124/77
--- NOTE | 2019-02-08 18:11 | NUR ---
RN MS NOTES PT IN BED, AWAKE, ALERT AND ORIENTED, DENIES PAIN, NOT IN DISTRESS, CALL LIGHT WITHIN REACH, IV FLUIDS INFUSING WELL, PM CARE PROVIDED, ASSISTED WITH DINNER, ALL NEEDS ATTENDED.
--- NOTE | 2019-02-08 19:00 | NUR ---
RN hemasurfrancisco opening notes Received Pt from morning nurse. Pt is alert and oriented X3. Pt is resting in bed comfortably. Respiration is normal. No SOB. No nausea or vomiting. Pt denies any pain or discomfort at this time. IV sites at RFA # 18 is clean, intact and patent. IV sites at RFA # 22 is clean, patent and infusing well NS @ 75 ml/hr. Abd Dressing is clean, intact and dry. Safety precautions is maintained. Instructed to call. Bed at low position, brakes locked, side rails upX2 and call light is within reach. Will continue to monitor.
[2019-02-08 20:00] VITALS: BP 135/79
--- NOTE | 2019-02-08 21:51 | NUR ---
RN medsurg notes Administered Ativan Inj 0.5 mg/0.25 ml IV push as ordered for anxiety per Pt request. VS is stable. Instructed to call. Will continue to monitor
[2019-02-09] MEDS: LORAZEPAM INJ 2 MG/ML VIAL IV PRN ×2 (04:28→22:16)
--- NOTE | 2019-02-09 04:30 | NUR ---
RN medsurg notes Administered Ativan Inj 0.5 mg/0.25 ml IV push as ordered for anxiety per Pt request. Pt states "I feel anxious." Instructed to call. Will continue to monitor
[2019-02-09] MEDS: MVI ADULT 10ML VIAL = 1AMP 10 ML in IV NS 0.9% 1,000 ML IV PRN (05:49)
[2019-02-09 06:29] LABS: BASOPHILS # (AUTO) 0.1 /CMM (0.0-0.2); BASOPHILS % (AUTO) 0.9 % (0.0-2.0); EOSINOPHILS % (AUTO) 1.4 % (0.0-6.0); HEMATOCRIT 28 % (33-45); HEMOGLOBIN 9.3 g/dL (11.5-14.8); LYMPHOCYTES # (AUTO) 0.5 /CMM (0.8-4.8); LYMPHOCYTES % (AUTO) 5.3 % (20.0-44.0); MEAN CORPUSCULAR HGB CONC 33 g/dl (31.0-36.0); MEAN CORPUSCULAR VOLUME 91 fL (82-100); MONOCYTES # (AUTO) 0.9 /CMM (0.1-1.30); MONOCYTES % (AUTO) 9.2 % (2.0-12.0); NEUTROPHILS # (AUTO) 8.2 /CMM (1.8-8.9); NEUTROPHILS % (AUTO) 83.2 % (43.0-81.0); PLATELET COUNT (AUTO) 303 /CMM (150-450); RED BLOOD CELL COUNT(AUTO) 3.08 MIL/uL (4.0-5.2); WHITE BLOOD COUNT (AUTO) 9.9 K/uL (4.3-11.0)
[2019-02-09 06:36] LABS: CALCIUM, SERUM 7.4 mg/dL (8.5-10.1); CREATININE 0.4 mg/dL (0.6-1.3); MAGNESIUM 1.7 mg/dL (1.8-2.4); PHOSPHORUS 2.6 mg/dL (2.5-4.9); POTASSIUM 3.3 mmol/L (3.5-5.1)
--- NOTE | 2019-02-09 06:52 | NUR ---
RN medsurg closing notes Pt is alert and orientedX3. Pt is resting in bed comfortably. Respiration is normal in 3 L NC. No SOB. No nausea or vomiting. Pt denies pain or discomfort at this time. IV sites at RFA # 18 is clean, intact and patent. IV sites at RFA # 22 is clean, intact, patent and infusing well multivitamin fluid @ 75 ml/hr. Abd dressing is clean, dry and intact. VS is stable. All needs met and attended. Kept Pt warm, dry and comfortable. Safety precautions is maintained. Bed at low position, brakes locked, side rails upX2 and call light is within reach. Will endorse to morning nurse for KRISTOFER.
--- NOTE | 2019-02-09 07:30 | NUR ---
RN MS NOTES PT IN BED, AWAKE, ALERT AND ORIENTED, NO COMPLAINT OF PAIN OR ANY DISCOMFORT, RESPIRATIONS NORMAL, IV FLUIDS INFUSING WELL, CALL LIGHT WITHIN REACH, NEEDS ATTENDED.
[2019-02-09] MEDS: PANTOPRAZOLE 40 MG TABLET.DR PO SCH (07:54)
[2019-02-09] MEDS: ENSURE ENLIVE 237 ML LIQUID (VANILLA) PO SCH ×3 (07:54→17:16)
[2019-02-09 08:00] VITALS: BP 111/68
[2019-02-09] MEDS ORDERED: POTASSIUM CHLORIDE 20 MEQ POWDER PACKET PO SCH (10:00)
[2019-02-09] MEDS: Magnesium 1GM/D5W 100ML PREMIX 100 ML IV SCH ×2 (10:15→11:34)
--- NOTE | 2019-02-09 10:28 | NUR ---
WOUND CARE CONSULT: PT PRESENTS WITH VERY BONY SACRAL AREA AND BLANCHABLE REDNESS, PRESENT ON ADMISSION. RECOMMENDATIONS MADE FOR SKIN PROTECTION. DISCUSSED WITH NURSING STAFF. CURRENT VAISHALI SCORE IS 18. WILL SEE PRN. SOLIS IN AGREEMENT WITH PLAN OF CARE. DEFER TO SURGEON FOR SURGICAL SITE (ABDOMEN). Addendum: 02/09/19 at 1029 by JET RICE WNGLORIAU Amended: Links added. Addendum: 02/09/19 at 1047 by JET RICE WNDNU DEFER TO MD FOR SWELLING AND SLIGHT REDNESS TO VULVA AREA, PRESENT ON ADMISSION.
[2019-02-09] MEDS: HYDROCODONE/APAP 5/325MG 1 EACH TABLET PO PRN ×2 (12:08→23:45)
--- NOTE | 2019-02-09 13:00 | NUR ---
RN MS NOTES PT SEEN BY DR. GOMEZ, PLAN OF CARE DISCUSSED WITH PT, VERBALIZED UNDERSTANDING, PAIN MEDS GIVEN FOR PAIN MANAGEMENT, SEEN BY PHYSICAL THERAPIST, TOLERATED TREATMENTS WELL, IV FLUIDS INFUSING WELL.
[2019-02-09 16:00] VITALS: BP 109/65
--- NOTE | 2019-02-09 18:00 | NUR ---
RN MS NOTES PT IN BED, AWAKE, ALERT AND ORIENTED, NO COMPLAINT OF PAIN AT THIS TIME, RESPIRATIONS NORMAL, CALL LIGHT WITHIN REACH, IV FLUIDS INFUSING WELL, PM CARE PROVIDED, ASSISTED IN TURNING AND REPOSITIONING, ALL NEEDS ATTENDED.
--- NOTE | 2019-02-09 19:20 | NUR ---
RN medsurg notes Pt is alert and oriented X3. Pt is resting in bed comfortably. Respiration is normal in 3 L NC. No SOB. No nausea or vomiting. Pt denies any pain or discomfort at this time. IV sites at RFA # 18 is clean, intact, patent and infusing well. Abd dressing is clean, dry, intact and patent. Safety precautions is maintained. Bed at low position, brakes locked, side rails upX2 and call light is within reach. Instructed to call. Will continue to monitor.
[2019-02-09 20:00] VITALS: BP 107/54
[2019-02-09] MEDS: IV NS 0.9% 1,000 ML IV PRN (21:21)
--- NOTE | 2019-02-09 22:20 | NUR ---
RN medsurfrancisco notes Pt is feeling anxious. Administered Ativan Inj 0.5 mg/0.25 ml IV push as ordered for anxiety per Pt request. VS is stable. Repositioned and turned for comfort. Instructed to call. Will continue to monitor
--- NOTE | 2019-02-09 23:46 | NUR ---
RN hemasurfrancisco notes Pt is complaining of pain in her abdomen. Administered [place] 5-325 tab/1 tab/PO as ordered for abdominal pain 7/10 on pain scale per Pt request. VS is stable. Instructed to call. Will continue to monitor.
[2019-02-10] MEDS: LORAZEPAM INJ 2 MG/ML VIAL IV PRN (05:34)
[2019-02-10 06:31] LABS: BASOPHILS # (AUTO) 0.1 /CMM (0.0-0.2); EOSINOPHILS % (AUTO) 2.6 % (0.0-6.0); HEMATOCRIT 26 % (33-45); HEMOGLOBIN 8.5 g/dL (11.5-14.8); LYMPHOCYTES # (AUTO) 0.9 /CMM (0.8-4.8); LYMPHOCYTES % (AUTO) 12.5 % (20.0-44.0); MEAN CORPUSCULAR HGB CONC 33 g/dl (31.0-36.0); MEAN CORPUSCULAR VOLUME 91 fL (82-100); MONOCYTES # (AUTO) 0.6 /CMM (0.1-1.30); MONOCYTES % (AUTO) 8.8 % (2.0-12.0); NEUTROPHILS # (AUTO) 5.2 /CMM (1.8-8.9); NEUTROPHILS % (AUTO) 75.1 % (43.0-81.0); PLATELET COUNT (AUTO) 291 /CMM (150-450); RED BLOOD CELL COUNT(AUTO) 2.82 MIL/uL (4.0-5.2); WHITE BLOOD COUNT (AUTO) 6.9 K/uL (4.3-11.0)
[2019-02-10 06:43] LABS: CALCIUM, SERUM 7.8 mg/dL (8.5-10.1); CREATININE 0.5 mg/dL (0.6-1.3); MAGNESIUM 1.9 mg/dL (1.8-2.4); PHOSPHORUS 3.6 mg/dL (2.5-4.9)
--- NOTE | 2019-02-10 07:00 | NUR ---
RN medsurg closing notes Pt is alert and orientedX3. Pt is resting in bed comfortably. Respiration is normal in 3 L NC. No SOB. No S/S of distress noted. Pt denies pain or discomfort at this time. IV sites at RFA #18 is clean, intact, patent and infusing well NS @ 75 ml/hr. Abd dressing is clean, dry and intact. VS is stable. Kept Pt warm, dry and comfortable. All needs met and attended. Turned and repositioned Q 2hr. Safety precautions is maintained. Bed at low position, brakes locked, side rails upX2 and call light is within reach. Will endorse to morning nurse for KRISTOFER.
--- NOTE | 2019-02-10 07:20 | NUR ---
RN OPENING NOTES RECEIVED PATIENT IN BED RESTING. NOT IN ANY FORM OF DISTRESS, NO SOB. DENIED ANY PAIN OR DISCOMFORT AT THIS TIME. IV ACCESS INTACT AND PATENT. KEPT PATIENT SAFE AND COMFORTABLE. BED IN LOW/LOCKED POSITION, SIDERAILS UPX2, CALL LIGHT IN REACH. WILL CONT TO MONITOR ACCORDINGLY.
[2019-02-10 08:00] VITALS: BP_SYST 116; BP_SYST 119; BP_DIAS 71; BP_DIAS 74
[2019-02-10] MEDS: PANTOPRAZOLE 40 MG TABLET.DR PO SCH (08:46)
[2019-02-10] MEDS: ENSURE ENLIVE 237 ML LIQUID (VANILLA) PO SCH ×2 (08:46→12:06)
[2019-02-10] MEDS ORDERED: MULT1TAB73 PO (11:26)
[2019-02-10] MEDS: HYDROCODONE/APAP 5/325MG 1 EACH TABLET PO PRN (12:52)
[2019-02-10 16:00] VITALS: BP 119/71
[2019-02-10] MEDS ORDERED: LORA-259 PO (16:02)
--- NOTE | 2019-02-10 17:42 | NUR ---
DISCHARGED PATIENT IN STABLE CONDITION, GOING BACK TO [facility], PICKED UP BY [facility]UL[facility]Z CREW. DISCHARGE INSTRUCTIONS GIVEN TO PATIENT. DC PAPERWORK HANDED TO AMBULANCE CREW. ALL BELONGINGS RETURNED TO PATIENT. REPORT GIVEN TO DIANELYS MCKEON FROM [facility] SNF AND DC INSTRUCTIONS GIVEN. EXITCARE/EDUCATIONAL MATERIAL GIVEN. IV ACCESS REMOVED, NO COMPLICATION. PHOTOS TAKEN, PLACED IT ON THE CHART. REMOVED NAME BAND.
== END 2019-02-10 17:34 | DRG 335 ==
LOC: ER 12:08 → MED 17:20
PROVIDERS: ADMIT Internal Medicine; ATTEND Nurse Practitioner Acute Care
PROC: 0DN80ZZ Release Small Intestine, Open Approach (ICD-10-PCS; principal; 2019-02-01)
DX: K43.0 Incisional hernia with obstruction, without gangrene (principal); E43 Unspecified severe protein-calorie malnutrition; E87.1 Hypo-osmolality and hyponatremia; E87.2 Acidosis; E87.6 Hypokalemia; E78.5 Hyperlipidemia, unspecified; K58.9 Irritable bowel syndrome, unspecified; E83.42 Hypomagnesemia; Z79.82 Long term (current) use of aspirin; Z90.49 Acquired absence of other specified parts of digestive tract; Z79.899 Other long term (current) drug therapy; K66.0 Peritoneal adhesions (postprocedural) (postinfection)
CPT/HCPCS: 36415; 71045-TC; 74018; 74250-TC; 80048-TC; 80076-TC; 81000-TC; 83605-TC; 83690-TC; 83735-TC; 84100-TC; 85025-TC; 85730-TC; 86850-TC; 87040-TC; 87081-TC; 94799-TC; 97110-TC; 97116-TC; 97530-TC; A4216; A6403; A9563; G0378; J0690; J2060; J2175; J2250; J2270; J2405; J2543; J2704; J2710; J2765; J3010; J3475; J3480; J3490; J7030; J7040; J7050; J7060; J7120; Q9963; Q9967

== ENCOUNTER 2019-12-03 08:47 | Inpatient (IN) | payer MEDICARE, OTHER ==
[~2019-12-03] VITALS: Ht 162.6 cm; Wt 37.2 kg
[~2019-12-03 08:47] MED LIST changes: +HYDR-4384 PO; +LACT10SO PO; +LORA-259 PO; +MULT-754 PO; -MULT1TAB73 PO
[2019-12-03] MEDS ORDERED: ONDANSETRON HCL/PF 4 MG/2 ML VIAL ONE (08:55)
[2019-12-03] MEDS ORDERED: ONDANSETRON HCL/PF 4 MG/2 ML VIAL IVP ONE (09:00)
[2019-12-03] MEDS ORDERED: IV NS 0.9% 500 ML BAG IV ONE (09:00)
--- NOTE | 2019-12-03 09:05 | NUR ---
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 On room air, breathing evenly and unlabored. connected to the monitor and pulse ox. kept comfortable, will continue to montior accordingly.
[2019-12-03 09:14] LABS: BASOPHILS % (AUTO) 0.7 % (0.0-2.0); EOSINOPHILS % (AUTO) 0.3 % (0.0-6.0); HEMATOCRIT 34 % (33-45); HEMOGLOBIN 11.1 g/dL (11.5-14.8); LYMPHOCYTES # (AUTO) 1.1 /CMM (0.8-4.8); LYMPHOCYTES % (AUTO) 17.1 % (20.0-44.0); MEAN CORPUSCULAR HGB CONC 32 g/dl (31.0-36.0); MEAN CORPUSCULAR VOLUME 96 fL (82-100); MONOCYTES # (AUTO) 0.2 /CMM (0.1-1.30); MONOCYTES % (AUTO) 3.3 % (2.0-12.0); NEUTROPHILS % (AUTO) 78.6 % (43.0-81.0); PLATELET COUNT (AUTO) 143 /CMM (150-450); RED BLOOD CELL COUNT(AUTO) 3.58 MIL/uL (4.0-5.2); WHITE BLOOD COUNT (AUTO) 6.3 K/uL (4.3-11.0)
[2019-12-03 09:31] LABS: CALCIUM, SERUM 9.5 mg/dL (8.5-10.1); CREATININE 0.9 mg/dL (0.6-1.3); POTASSIUM 3.3 mmol/L (3.5-5.1)
[2019-12-03 09:36] LABS: ALBUMIN 3.7 g/dL (3.4-5.0); BILIRUBIN,DIRECT 0.1 mg/dL (0.0-0.2); BILIRUBIN,TOTAL 0.3 mg/dL (0.2-1.0); TOTAL PROTEIN, SERUM 6.5 g/dL (6.4-8.2)
--- NOTE | 2019-12-03 09:59 | NUR ---
PATIENT COMPLAINING OF 10/10 PS ABDOMINAL PAIN, INFORMED MD. RECEIVED VERBAL ORDER OF MORPHINE 4MG IVP. HODAN ROBIN
[2019-12-03] MEDS ORDERED: MORPHINE SULFATE INJ 4 MG/ML DISP.SYRIN ONE (10:12)
--- NOTE | 2019-12-03 10:56 | NUR ---
covid19 swab done and sent to lab
--- NOTE | 2019-12-03 11:38 | NUR ---
CALLED HOUSE SUP FOR TELE BED.
--- NOTE | 2019-12-03 11:48 | NUR ---
GOT BED [id number] STEPHANY
--- NOTE | 2019-12-03 11:50 | NUR ---
alexandria ledbetter np at bedside
[2019-12-03] MEDS ORDERED: Z GUARD REMEDY 2 OZ OINT TP PRN (12:00)
[2019-12-03] MEDS ORDERED: MORPHINE SULFATE INJ 2 MG/ML DISP.SYRIN IV PRN (12:00)
--- NOTE | 2019-12-03 12:22 | NUR ---
Meme manzo in [facility] - 12/03/19 at 1223 by ELSIE REPORT GIVEN TO [facility] IVORY OF MS UNIT
--- NOTE | 2019-12-03 12:23 | NUR ---
REPORT GIVEN TO [facility] OF MS [facility]
[2019-12-03] MEDS ORDERED: MORPHINE SULFATE INJ 4 MG/ML DISP.SYRIN IV ONE (12:30)
[2019-12-03 13:00] VITALS: BP 131/62
--- NOTE | 2019-12-03 13:00 | NUR ---
ADMIT TO [facility] PT ADMITTED TO [facility]. BROUGHT IN VIA [employer]. APPARENTLY PT WAS COMPLAINING OF ABDOMINAL PAIN IN THE ER. PT STILL COMPLAINING OF PAIN 12/17 AT THIS TIME. PT HAS HX OF IRRITABLE BOWEL SYNDROME, SEVERE MALNUTRITION, HEPATOMEGALY AND HX OF EXPLORATORY LAPAROTOMY. NKA. PT IS AOX4. NO CARDIAC OR RESPIRATORY DISTRESS NOTED. NO SOB NOTED. SATURATING WELL ON ROOM AIR. CONTINENT OF BOWEL AND BLADDER. USED BED PEREZ. IV ACCESS NOTED ON R AC G18. INTACT AND PATENT AND FLUSHING WELL. NO S/S OF INFECTION OR INFILTRATION NOTED. SAFETY PRECAUTIONS IN PLACE. BED LOCKED AND IN LOW POSITION. SIDE RAILS UP X2. BED ALARM ON .CALL LIGHT WITHIN REACH.
[2019-12-03] MEDS: PANTOPRAZOLE 40 MG VIAL IV SCH (13:07)
[2019-12-03] MEDS: POTASSIUM CL. PREMIX PERIPHER. 50 ML IV SCH ×4 (13:07→16:56)
[2019-12-03] MEDS ORDERED: POTASSIUM CL. PREMIX PERIPHER. 50 ML IV SCH (13:12)
[2019-12-03 13:33] LABS: IRON, SERUM 41 ug/dl (50-175); TOTAL IRON BINDING CAPACITY 262 ug/dl (250-450)
[2019-12-03] MEDS ORDERED: LIDOCAINE/PRILOCAINE (5GM) 5 GM TUBE TP STA (13:35)
[2019-12-03 13:44] LABS: FERRITIN 73 ng/mL (8-388)
[2019-12-03] MEDS: IV D5 LR 1,000 ML IV PRN (13:58)
--- NOTE | 2019-12-03 14:00 | NUR ---
INCREASE MORPHINE RECEIVED ORDER FROM DR. LOCO TO INCREASED MORPHINE TO 4MG VIA IV Q4HRS PRN D/T PT STILL COMPLAINING OF SEVERE PAIN. NOTED AND CARRIOED OUT
[2019-12-03] MEDS ORDERED: LIDOCAINE VISCOUS 2% UD 15 ML UDC MM ONE (14:30)
--- NOTE | 2019-12-03 14:30 | NUR ---
NGTUBE BGTUBE INSERTED ON R NAERE. TOLERATED PROCEDURE WELL. STAT CXRAY ORDERED FOR PLACEMENT CONFIRMATION.
[2019-12-03] MEDS: ONDANSETRON HCL/PF 4 MG/2 ML VIAL IVP PRN (14:32)
--- NOTE | 2019-12-03 15:00 | NUR ---
NGTUBE SUCTION NGTUBE PLACEMENT CONFIRMED. PLACED PT ON A LOW CONTINUOS SUCTION PER MD ORDERS.
[2019-12-03] MEDS ORDERED: MORPHINE SULFATE INJ 4 MG/ML DISP.SYRIN IV PRN (15:30)
[2019-12-03 16:00] VITALS: BP 134/73
--- NOTE | 2019-12-03 16:00 | NUR ---
VTE DVT PUMPS CURRENTLY APPLIED ON THE PT. ASKED DR. LOCO IF HE WANTS TO ORDER ANTI-COAGULANTS, NO NEW ORDERS GIVEN BY .
--- NOTE | 2019-12-03 18:18 | NUR ---
RN CLOSING NOTES ADMIT TO [facility] PT IN BED AWAKE ALERT AND ORIENTED X4. PLEASANT AND COOPERATIVE. NO COMPLAINTS OF PAIN OR DISCOMFORT AT THIS TIME. PROVIDED PT WITH HEAT PACK FOR ABD PAIN AND MANAGED PAIN WITH MORPHINE PRN. NO CARDIAC OR RESPIRATORY DISTRESS NOTED. NO SOB NOTED. SATURATING WELL ON ROOM AIR. PT IS CONTINENT OF BOWEL AND BLADDER. USED BED PEREZ. IV ACCESS NOTED ON R AC G18. INTACT AND PATENT AND FLUSHING WELL. NO S/S OF INFECTION OR INFILTRATION NOTED. WITH D5LR RUNNING AT 75ML/HR. TOLERATING IV FLUIDS WELL. GTUBE NOTED ON R NARE ON LOW CONTINOUS SUCTION, DRAINING WITH ROJO SEROUS DRAINING. BOWEL SOUNDS PRESENT ON ALL 4 QUADRANTS. PER PT HER LAST BM WAS YESTERDAY MORNING. ACCORDING TO HER SHE HAD A BM 3X YESTERDAY. SAFETY PRECAUTIONS IN PLACE. BED LOCKED AND IN LOW POSITION. SIDE RAILS UP X2. BED ALARM ON .CALL LIGHT WITHIN REACH. WILL ENDORSE TO NEXT SHIFT.
--- NOTE | 2019-12-03 19:15 | NUR ---
RN PM OPENING NOTE RN CLOSING NOTES REPORT RECIEVED FROM THIERNO IVORY. PT IN BED AWAKE ALERT AND ORIENTED X4. COMPLAINS OF PAIN IN ABD RATED 6/10 REVIEWED PAIN MAMNAGEMENT PLAN HEAT PACKS GIVEN AND REPORTS SOME RELIEF. PT IN NO APPARENT RESPIRATORY DISTRESS RESP EVEN AND UNLABORED. PT IS CONTINENT OF BOWEL AND BLADDER. IV ACCESS R AC G18. INTACT AND PATENT NO S/S OF INFECTION OR INFILTRATION WITH D5LR RUNNING AT 75ML/HR. NG TUBE R NARE ON LOW CONTINOUS SUCTION, DRAINING WITH RED/BROWN. HYPOACTIVE BOWEL SOUNDS PRESENT ON ALL 4 QUADRANTS. PER PT HER PER REPORT LAST BM WAS 12/03/19. SAFETY PRECAUTIONS IN PLACE. BED LOCKED AND IN LOW POSITION. SIDE RAILS UP X2. BED ALARM ON .CALL LIGHT WITHIN REACH. WILL CONT TO MONITOR.
[2019-12-03 20:00] VITALS: BP 140/71
[2019-12-03] MEDS: MORPHINE SULFATE INJ 4 MG/ML DISP.SYRIN IV PRN (20:56)
--- NOTE | 2019-12-03 20:57 | NUR ---
PAIN MEDICATION NEW ORDER NGT SXN CLARIFICATION PATIENT COMPLAINING OF ABD PAIN 12/17 CONTACTED CONTRACTS ATTORNEY TONI AND INFORMED OF PATIENTS COMPLAINTS REVIEWED MEDICATIONS ORDERED AND GOT NEW ORDER TO INCREASE FREQUENCY OF MORPHINE Q3HR PRN. ASKED ABOUT SPECIFIC CLARIFICATION OF ORDER FOR NGT SUCTION. STATES THAT LOW CONTNUOUS SXN OR LIS SXN IS OK. PT CHANGED TO LOW IS SXN.
[2019-12-04] MEDS: ONDANSETRON HCL/PF 4 MG/2 ML VIAL IVP PRN ×2 (00:09→06:23)
[2019-12-04] MEDS: MORPHINE SULFATE INJ 4 MG/ML DISP.SYRIN IV PRN ×3 (00:09→12:36)
[2019-12-04] MEDS: IV D5 LR 1,000 ML IV PRN ×2 (00:09→18:02)
--- NOTE | 2019-12-04 00:40 | NUR ---
NGT READJUSTED ngt checked pt c/o feeling like tube is in back of throat. appears tube has slipped 3cm tape removed tube advanced to 68cm and retaped to right nostril .placement confirmed with auscultation tube draining red brown secrectioin small amoun and placed back on lis.
[2019-12-04 08:00] VITALS: BP 126/69
--- NOTE | 2019-12-04 08:00 | NUR ---
m/s jacquard loom carpet weaver: initial assessment received pt in bed awake, a/ox4. no c/o pain at this time. remains npo and on ngt to intermittent low suction. no gastric output noted at this time. instructed to call for assistance. will continue to monitor.
[2019-12-04 08:01] LABS: ALBUMIN 3.3 g/dL (3.4-5.0); BILIRUBIN,TOTAL 0.5 mg/dL (0.2-1.0); CALCIUM, SERUM 9.1 mg/dL (8.5-10.1); CREATININE 0.9 mg/dL (0.6-1.3); MAGNESIUM 1.9 mg/dL (1.8-2.4); PHOSPHORUS 3.6 mg/dL (2.5-4.9); POTASSIUM 3.8 mmol/L (3.5-5.1); TOTAL PROTEIN, SERUM 6.2 g/dL (6.4-8.2)
[2019-12-04 08:09] LABS: BASOPHILS % (AUTO) 0.1 % (0.0-2.0); HEMATOCRIT 37 % (33-45); HEMOGLOBIN 11.9 g/dL (11.5-14.8); LYMPHOCYTES # (AUTO) 0.6 /CMM (0.8-4.8); LYMPHOCYTES % (AUTO) 4.9 % (20.0-44.0); MEAN CORPUSCULAR HGB CONC 32 g/dl (31.0-36.0); MEAN CORPUSCULAR VOLUME 96 fL (82-100); MONOCYTES # (AUTO) 0.5 /CMM (0.1-1.30); MONOCYTES % (AUTO) 4.4 % (2.0-12.0); NEUTROPHILS # (AUTO) 11.1 /CMM (1.8-8.9); NEUTROPHILS % (AUTO) 90.6 % (43.0-81.0); PLATELET COUNT (AUTO) 146 /CMM (150-450); RED BLOOD CELL COUNT(AUTO) 3.85 MIL/uL (4.0-5.2); WHITE BLOOD COUNT (AUTO) 12.3 K/uL (4.3-11.0)
--- NOTE | 2019-12-04 08:55 | NUR ---
m/s adult basic education instructor: md visit seen and examined by dr. ledbetter with new orders. orders acknowledged. urine collected and called lab to order picker/assembler specimen.
--- NOTE | 2019-12-04 09:30 | NUR ---
m/s noodle catalyst maker: notes f/u made to paul (medical lab technologist) to grain picker urine specimen in the ref.
--- NOTE | 2019-12-04 09:45 | NUR ---
m/s dungeon master: notes dr. ledbetter still here and made aware of stat kub results with nno.
[2019-12-04] MEDS: PANTOPRAZOLE 40 MG VIAL IV SCH (09:50)
--- NOTE | 2019-12-04 12:36 | NUR ---
m/s mophead sewer: notes c/o 12/17 abdominal pain, medicated with morphine 4mg ivp by rn. pt refused zofran when offered. pt remains npo and remains on ngt to low intermittent suction. instructed to call for assistance.
--- NOTE | 2019-12-04 12:42 | NUR ---
WOUND CARE CONSULT: PT PRESENTS VERY THIN AND BONY WITH HEALED AREA TO LEFT ANKLE. RECOMMENDATIONS MADE FOR SKIN PROTECTION. DISCUSSED WITH NURSING STAFF. PT IS CONTINENT AT THIS TIME AND INDEPENDENT WITH BED MOBILITY. WILL SEE PRN. SOLIS IN AGREEMENT WITH PLAN OF CARE.
--- NOTE | 2019-12-04 13:06 | NUR ---
m/s metal welder: notes f/u made to edi (public works laborer) re: ua result, saying they haven't receive the urine yet, informed her we called 2x this morning to sisal picker the specimen.
[2019-12-04 13:29] LABS: APPEARANCE,URINE CLEAR (CLEAR); BILIRUBIN,URINE NEGATIVE (NEGATIVE); BLOOD, URINE TRACE-INTA Ery/uL (NEGATIVE); KETONES,URINE NEGATIVE (NEGATIVE); LEUKOCYTE ESTERASE ,URINE NEGATIVE (NEGATIVE); NITRITE, URINE NEGATIVE (NEGATIVE); PROTEIN,URINE NEGATIVE (NEGATIVE); UGLUCOSE NEGATIVE (NEGATIVE); UROBILINOGEN,URINE 0.2 EU/dL (0.2)
[2019-12-04 13:32] LABS: COLOR,URINE STRAW (YELLOW)
[2019-12-04 13:55] LABS: BACTERIA,URINE Rare /HPF (None Seen); RBC,URINE 0-2 /HPF (0-2); SQUAMOUS EPITHELIAL CELL,UR Rare /HPF (None Seen); WBC,URINE 0-2 /HPF (0-3)
--- NOTE | 2019-12-04 15:45 | NUR ---
m/s hse manager: surgeon consult seen by dr. galvan with order of xr small bowel follow through series. order carried out by christine.
[2019-12-04 16:00] VITALS: BP 137/72
--- NOTE | 2019-12-04 16:23 | NUR ---
m/s fitter hand: notes dr. ledbetter called with order to start on zosyn 3.375 g ivpb q 6 hours. order read back and carried out and acknowledged.
--- NOTE | 2019-12-04 17:00 | NUR ---
m/s beer coil cleaner: surgeon f/u dr. galvan at bedside and ordered ct abdomen pelvis with, without contrast and cancelled small bowel series. orders carried out.. consent signed by pt and verbalized understanding.
[2019-12-04] MEDS ORDERED: IV NS 0.9% 250 ML IV ONE (17:10)
[2019-12-04] MEDS ORDERED: IOHEXOL-350 100 ML VIAL IV ONE (17:10)
[2019-12-04] MEDS ORDERED: DIATR MEGLU/DIATRIZOATE SODIUM 30 ML BOTTLE (GASTROGRAPHIN) ONE (17:12)
--- NOTE | 2019-12-04 17:40 | NUR ---
m/s lead etl developer: notes flushed with 200ml of mixed water oral contrast via ngt, tol. well. crisostomo (medical laboratory scientist) made aware.
--- NOTE | 2019-12-04 18:00 | NUR ---
m/s rn clinical coordinator: notes flushed with 100ml of mixed water oral contrast via ngt, finesse. well.
[2019-12-04] MEDS: PIPERACILLIN /TAZOBACTAM 3.375 G in IV D5W 50 ML IV SCH (18:14)
--- NOTE | 2019-12-04 18:30 | NUR ---
m/s orange picker: notes flushed with 100ml of mixed water oral contrast via ngt, finesse. well. needs attended. no distress noted. will continue to monitor.
--- NOTE | 2019-12-04 19:00 | NUR ---
m/s mastercam programmer: notes flushed with 100ml of mixed water oral contrast via ngt, finesse. well.
--- NOTE | 2019-12-04 19:15 | NUR ---
m/s shrub planter: notes report given to blaire (jeffrey) for continuity of care.
--- NOTE | 2019-12-04 19:15 | NUR ---
MSRN FULLY AWAKE. NGT CLAMP FOR NOW. FOR CT WITH CONTRAST TONIGHT. CONTRAST TO GIVE Q 30 MINUTES. SPOKE TO CHICK SEXER, INSTRUCTIONS RECEIVED. CT AT 2140..
--- NOTE | 2019-12-04 19:30 | NUR ---
MSRN 100 CC CONTRAST GIVEN VIA GT TUBE, ADMIISTERED SLOWLY , DENIES NAUSEA. REMINDED TO CALL STAFF FOR ANY ASSISTANCE OR FURTHER DISCOMFORTS, CALL LIGHT WITHIN REACH. SAFETY PRECAUTIONS INSTRUCTED, WELL UNDERSTOOD.
[2019-12-04 20:59] VITALS: BP 139/71
--- NOTE | 2019-12-04 22:17 | NUR ---
MSRN WENT FOR CT OF ABD AND PELVIS WITH CONTRAST VIA BED.
--- NOTE | 2019-12-04 22:45 | NUR ---
MSRN BACK FROM CT. PATIENT RECONNECTED TO WALL SUCTION DRAINED 200 CC CLEAR GREENISH DRAINAGE. DENIES ANY N/V. PRESENT IVF CONTINUED. KEPT NPO. POSITIONED FOR COMFORT. KEPT DRY CLEAN AND COMFORTABLE.
--- NOTE | 2019-12-04 23:16 | NUR ---
MSRN RESULTED CT OF ABD AND PELVIS WITH CONTRAST FORWARDED TO DR. AURELIO RADFORD. AWAITING FOR ANY FURTHER ORDERS.
--- NOTE | 2019-12-04 23:48 | NUR ---
MSRN SURGEON AWARE OF RESULTS
[2019-12-05] MEDS: PIPERACILLIN /TAZOBACTAM 3.375 G in IV D5W 50 ML IV SCH ×4 (00:31→17:19)
--- NOTE | 2019-12-05 03:25 | NUR ---
MSRN INFORMED DR RADFORD PATIENT HAS NO BM AND PATIENT STATED HAVE NOT PASS GAS YET, ABD PAIN TOLERABLE. REMAINS NO N/V. FURTHER ORDERS RECEIVED. STAT BLOOD WORKS ORDERED. POSSIBLE SURGERY TODAY
[2019-12-05 04:32] LABS: BASOPHILS % (AUTO) 0.4 % (0.0-2.0); EOSINOPHILS % (AUTO) 0.2 % (0.0-6.0); HEMATOCRIT 38 % (33-45); HEMOGLOBIN 12.6 g/dL (11.5-14.8); LYMPHOCYTES # (AUTO) 0.8 /CMM (0.8-4.8); LYMPHOCYTES % (AUTO) 10.1 % (20.0-44.0); MEAN CORPUSCULAR HGB CONC 33 g/dl (31.0-36.0); MEAN CORPUSCULAR VOLUME 95 fL (82-100); MONOCYTES # (AUTO) 0.6 /CMM (0.1-1.30); MONOCYTES % (AUTO) 8.2 % (2.0-12.0); NEUTROPHILS # (AUTO) 6.4 /CMM (1.8-8.9); NEUTROPHILS % (AUTO) 81.1 % (43.0-81.0); PLATELET COUNT (AUTO) 151 /CMM (150-450); RED BLOOD CELL COUNT(AUTO) 4.05 MIL/uL (4.0-5.2); WHITE BLOOD COUNT (AUTO) 7.9 K/uL (4.3-11.0)
[2019-12-05 04:44] LABS: ALANINE AMINOTRANSFERASE 17 U/L (12-78); ALKALINE PHOSPHATASE 53 U/L (46-116); ASPARTATE AMINOTRANSFERASE 18 U/L (15-37); BILIRUBIN,TOTAL 1.1 mg/dL (0.2-1.0); CALCIUM, SERUM 8.9 mg/dL (8.5-10.1); CARBON DIOXIDE 35 mmol/L (21-32); CHLORIDE 97 mmol/L (98-107); CREATININE 0.9 mg/dL (0.6-1.3); GLUCOSE 109 mg/dL (74-106); POTASSIUM 3.5 mmol/L (3.5-5.1); SODIUM SERUM 138 mmol/L (136-145); TOTAL PROTEIN, SERUM 5.9 g/dL (6.4-8.2); UREA NITROGEN, BLOOD 8 mg/dL (7-18)
--- NOTE | 2019-12-05 05:16 | NUR ---
MSRN LABS RESULTED, RELAYED TO
[2019-12-05 08:00] VITALS: BP 112/73
--- NOTE | 2019-12-05 08:00 | NUR ---
m/s dip tube assembler machine: initial assessment received pt in bed awake, a/ox4. no c/o pain at this time. remains npo and on ngt to intermittent low suction with dark brow gastric output noted at this time. instructed to call for assistance. will continue to monitor.
[2019-12-05 08:10] LABS: BILIRUBIN,DIRECT 0.2 mg/dL (0.0-0.2)
[2019-12-05] MEDS: PANTOPRAZOLE 40 MG VIAL IV SCH (08:51)
[2019-12-05] MEDS: MORPHINE SULFATE INJ 4 MG/ML DISP.SYRIN IV PRN ×3 (08:53→22:28)
[2019-12-05] MEDS: ONDANSETRON HCL/PF 4 MG/2 ML VIAL IVP PRN (08:53)
--- NOTE | 2019-12-05 09:00 | NUR ---
m/s route sales specialist: cardio f/u seen by dr. oneil and anthony for surgery today.
--- NOTE | 2019-12-05 11:25 | NUR ---
m/s caustic plant worker: surgeon consult juan (susan) at bedside and explained the procedure involve and risks, pt verbalized understanding. per loss prevention auditor, she will put the order in.
[2019-12-05] MEDS: IV D5 LR 1,000 ML IV PRN (11:30)
--- NOTE | 2019-12-05 12:30 | NUR ---
m/s land management forester: notes pt sounds asleep at this time. pt remains npo and scheduled for surgery this evening. ngt intact and still on low continuous suction. will continue to monitor.
--- NOTE | 2019-12-05 13:00 | NUR ---
m/s finger waver: notes pt awaken and consent obtain for <Laparoscopic versus open exploration, possible bowel resection, possible, ventral hernia repair, possible any other indicated procedures, anesthesia, and blood products. pt verbalized understanding. ms porter (dpoa) on the phone and spoke to pt and made aware of scheduled surgery today.
--- NOTE | 2019-12-05 14:30 | NUR ---
m/s supervisor instrument mechanics: notes pt resting comfortable in bed. no distress noted. ngt remains attached to low intermittent suction. will continue to monitor.
[2019-12-05 16:00] VITALS: BP 123/75
--- NOTE | 2019-12-05 17:15 | NUR ---
m/s reed press feeder: notes picked up by esther (recovery nurse) via bed with zosyn ivpb due at 1800 to be given in o.r.
[2019-12-05] MEDS ORDERED: FENTANYL PF 100MCG/2ML AMPUL ONE ×2 (17:45→19:48)
[2019-12-05] MEDS ORDERED: ROCURONIUM BROMIDE 50 MG/5 ML ONE (17:46)
[2019-12-05] MEDS ORDERED: SUCCINYLCHOLINE CHLORIDE 20 MG/ML VIAL ONE (17:46)
[2019-12-05] MEDS ORDERED: BUPIVACAINE MPF 0.5% W/EPI INJ 30 ML VIAL ONE (18:35)
[2019-12-05] MEDS ORDERED: LIDOCAINE 1% INJ 50 ML MDV IJ ONE (18:35)
--- NOTE | 2019-12-05 19:00 | NUR ---
m/s tavern operator: notes pt still out of unit (surgery). report given to davida (rn) for continuity of care.
--- NOTE | 2019-12-05 19:29 | NUR ---
RN OPENING NOTE RECEIVED REPORT FROM DEANDRE GUZMAN NOT IN UNIT. CURRENTLY IN OR
[2019-12-05 20:00] VITALS: BP 122/71
[2019-12-05 20:20] VITALS: BP 122/71
--- NOTE | 2019-12-05 20:20 | NUR ---
RN NOTE PT ARRIVED TO UNIT A/O X 4, V/S B/P 122/71, P 55 RR 12 O2 SAT, 98% ON ROOM AIR. PLACED ON LOW INTERMITTENT SUCTION. NGT TO RIGHT NARE PATENT AND IN PLACE, ABDOMINAL BINDER IN PLACE AND INTACT. IV TO RAC PATENT, INTACT AND FLUSHING WELL. DENIES PAIN AT THIS TIME. VERIFIED WITH CHARGE NURSE, NO NEW ORDERS PLACED BY SURGEON. WILL CONT. TO MONITOR PT.
--- NOTE | 2019-12-05 20:50 | NUR ---
RN NOTE PT RESTING COMFORTABLY V/S 130/61, P 57, 02 SAT 98 %. SUCTION ON LOW INTERMITTENT. VERIFIED WITH CHARGE NURSE, NO NEW ORDERS PLACED BY MD. WILL CONT. TO MONITOR PT.
--- NOTE | 2019-12-05 21:52 | NUR ---
RN NOTE B/P 115/69 PULSE 69 TEMP 97.9. MORPHINE 4 MG GIVEN PT C/O PAIN 12/17 TO ABDOMEN. WILL CONT TO MONITOR PT.
--- NOTE | 2019-12-05 22:25 | NUR ---
RN NOTE PT RESTING COMFORTABLY, ASLEEP WITH HOB ELEVATED ,O2 SAT 98% ON ROOM AIR, HR 61. WILL CONT. TO MONITOR PT.
[2019-12-06] MEDS: MORPHINE SULFATE INJ 4 MG/ML DISP.SYRIN IV PRN ×3 (01:51→17:04)
--- NOTE | 2019-12-06 06:06 | NUR ---
RN NOTE REMOVED PAUL CATH PER MD ORDER. 450 ML VOIDED.
--- NOTE | 2019-12-06 06:54 | NUR ---
RN CLOSING NOTE PT RESTING COMFORTABLY WITH HOB ELEVATED, ON O2 VIA NC AT 2 L/MIN. PT ON INTERMITTENT LOW SUCTION. NGT TO RIGHT NARE PATENT AND IN PLACE, ABDOMINAL BINDER IN PLACE. IV TO RAC PATENT, INTACT AND FLUSHING WELL. DENIES PAIN AT THIS TIME. PT REFUSED PT CARE DURING SHIFT. NEEDS MET, CALL LIGHT WITHIN REACH, SIDE RAILS UP X 2. ENDORSED TO AM RN FOR KRISTOFER
--- NOTE | 2019-12-06 07:37 | NUR ---
MS RN OPENING NOTES RECEIVED PATIENT IN BED, AWAKE, A/O X4. PATIENT IS ON OXYGEN THERAPY 2 LPM VIA NASAL CANNULA BUT CAN TOLERATE WELL ROOM AIR. COMPLAINING OF MILD PAIN AT THIS TIME. NG-TUBE TO RIGHT NARIS PATENT AND IN PLACE, ABDOMINAL BINDER IN PLACE. RAC IV ACCESS INTACT INFUSING D5LR @ 75 MLS/HR. SAFETY PRECAUTIONS ON: BED IN LOW POSITION AND LOCKED, RAILS UP X2, CALL LIGHT WITHIN REACH. WILL CONTINUE TO MONITOR PATIENT.
[2019-12-06 08:00] VITALS: BP 103/52
[2019-12-06] MEDS: PANTOPRAZOLE 40 MG VIAL IV SCH (09:27)
[2019-12-06 09:33] LABS: CALCIUM, SERUM 8.2 mg/dL (8.5-10.1); CREATININE 0.7 mg/dL (0.6-1.3); POTASSIUM 3.4 mmol/L (3.5-5.1)
[2019-12-06] MEDS: ENOXAPARIN SODIUM 40 MG/0.4 ML DISP.SYRIN SQ SCH (09:34)
[2019-12-06 09:35] LABS: BASOPHILS % (AUTO) 0.1 % (0.0-2.0); HEMATOCRIT 38 % (33-45); HEMOGLOBIN 12.3 g/dL (11.5-14.8); LYMPHOCYTES # (AUTO) 0.5 /CMM (0.8-4.8); LYMPHOCYTES % (AUTO) 5.2 % (20.0-44.0); MEAN CORPUSCULAR HGB CONC 33 g/dl (31.0-36.0); MEAN CORPUSCULAR VOLUME 96 fL (82-100); MONOCYTES # (AUTO) 0.7 /CMM (0.1-1.30); MONOCYTES % (AUTO) 6.3 % (2.0-12.0); NEUTROPHILS # (AUTO) 9.3 /CMM (1.8-8.9); NEUTROPHILS % (AUTO) 88.4 % (43.0-81.0); PLATELET COUNT (AUTO) 148 /CMM (150-450); RED BLOOD CELL COUNT(AUTO) 3.93 MIL/uL (4.0-5.2); WHITE BLOOD COUNT (AUTO) 10.5 K/uL (4.3-11.0)
[2019-12-06] MEDS ORDERED: POTASSIUM CHLORIDE 20 MEQ TAB.PRT.SR PO ONE (10:30)
--- NOTE | 2019-12-06 12:26 | NUR ---
MS RN NOTES PATIENT TRANSFEREE TO SIT IN THE CHAIR. CALL LIGHT WITHIN REACH.
[2019-12-06 16:00] VITALS: BP 122/76
[2019-12-06] MEDS: IV D5 LR 1,000 ML IV PRN (18:28)
--- NOTE | 2019-12-06 19:04 | NUR ---
MS RN CLOSING NOTES PATIENT IN BED, AWAKE, A/O X4. PATIENT IS ON OXYGEN THERAPY 2 LPM VIA NASAL CANNULA BUT CAN TOLERATE WELL ROOM AIR. COMPLAINING OF MILD PAIN AT THIS TIME. PAIN TREATED DURING SHIFT WITH PRN PAIN MEDICATION. NG-TUBE TO RIGHT NARIS PATENT AND IN PLACE, ABDOMINAL BINDER IN PLACE. RAC IV ACCESS INTACT INFUSING D5LR @ 75 MLS/HR. ALL NEEDS ATTENDED TO THROUGHOUT THE DA. SAFETY PRECAUTIONS ON: BED IN LOW POSITION AND LOCKED, RAILS UP X2, CALL LIGHT WITHIN REACH. WILL ENDORSE TO DARKLIGHT INSPECTOR NURSE.
--- NOTE | 2019-12-06 19:15 | NUR ---
rolling mill operator helper initial notes received report from am nurse while doing our rounds and seen pt in bed sitting awake and alert with NGT for intermittent suction . no N/V noted. Denies any pain or any discomfort. not in any acute distress noted. respiration even and non-labored . re-oriented where she and how to used the call light system and encourage her to use if she needs some help or needs assistance. bed in low and lock in position with side rails x2 up and bed alarm set for safety. place call light at reach.
[2019-12-06 20:00] VITALS: BP 103/63
--- NOTE | 2019-12-06 22:50 | NUR ---
tele single wire saw operator notes pt checked and he stated "thank you now is peaceful ." routine meds given and blood sugar checked down 106, no insulin due at this time. no signs of hypo glycemia noted. snacks also served. kept him comfortable at all times. place call light at reach. will continue monitoring. Addendum: 12/06/19 at 2254 by RAF TYLER LVN disregard this notes belong to diff patient.
--- NOTE | 2019-12-07 | NUR ---
ms janene notes pt resting at this time after night care rendered. still on NGT low intermittent suction, no aspiration noted. kept her HOB elevated at all times. will continue monitoring.
--- NOTE | 2019-12-07 02:40 | NUR ---
ms janene notes pt sleeping at this time, not in any acute distress noted . kept her warm and comfortable at all times. will continue monitoring .
--- NOTE | 2019-12-07 07:43 | NUR ---
MS AUTOMOTIVE TITLE CLERK CLOSING NOTES PT IS AWAKE AND ALERT DENIES ANY PAIN OR ANY DISCOMFORT. STILL WITH NGT INTERMITTENT SUCTION. NO ASPIRATION NOTED. STILL REFUSED TO HAVE HER IV FLUID TO BE INFUSE. STABLE [place] THE NIGHT . KEPT HER WARM AND COMFORTABLE AT ALL TIMES. ENDORSE TO AM NURSE FOR CONTINUITY OF CARE. PLACE CALL LIGHT AT REACH.
--- NOTE | 2019-12-07 07:45 | NUR ---
MS RN OPENING NOTES RECEIVED PATIENT IN BED, AWAKE, A/O X4. PATIENT IS ON OXYGEN THERAPY 2 LPM VIA NASAL CANNULA BUT CAN TOLERATE WELL ROOM AIR. PATIENT WAS IN AND OUT OF BED ON THE BEDSIDE COMMODE. NG-TUBE TO RIGHT NARIS PATENT AND IN PLACE, ABDOMINAL BINDER IN PLACE. RAC IV ACCESS INTACT INFUSING D5LR @ 75 MLS/HR. SAFETY PRECAUTIONS ON: BED IN LOW POSITION AND LOCKED, RAILS UP X2, CALL LIGHT WITHIN REACH. WILL CONTINUE TO MONITOR PATIENT.
[2019-12-07 08:00] VITALS: BP 137/71
[2019-12-07 08:33] LABS: BASOPHILS % (AUTO) 0.5 % (0.0-2.0); EOSINOPHILS % (AUTO) 0.1 % (0.0-6.0); HEMATOCRIT 34 % (33-45); LYMPHOCYTES # (AUTO) 0.6 /CMM (0.8-4.8); LYMPHOCYTES % (AUTO) 7.6 % (20.0-44.0); MEAN CORPUSCULAR HGB CONC 33 g/dl (31.0-36.0); MEAN CORPUSCULAR VOLUME 96 fL (82-100); MONOCYTES # (AUTO) 0.5 /CMM (0.1-1.30); NEUTROPHILS # (AUTO) 7.1 /CMM (1.8-8.9); NEUTROPHILS % (AUTO) 85.8 % (43.0-81.0); PLATELET COUNT (AUTO) 169 /CMM (150-450); RED BLOOD CELL COUNT(AUTO) 3.52 MIL/uL (4.0-5.2); WHITE BLOOD COUNT (AUTO) 8.3 K/uL (4.3-11.0)
[2019-12-07 08:42] LABS: CALCIUM, SERUM 8.6 mg/dL (8.5-10.1); CREATININE 0.7 mg/dL (0.6-1.3); MAGNESIUM 1.8 mg/dL (1.8-2.4); PHOSPHORUS 2.8 mg/dL (2.5-4.9); POTASSIUM 3.2 mmol/L (3.5-5.1)
[2019-12-07] MEDS: PANTOPRAZOLE 40 MG VIAL IV SCH (09:32)
[2019-12-07] MEDS: ENOXAPARIN SODIUM 40 MG/0.4 ML DISP.SYRIN SQ SCH (09:33)
[2019-12-07] MEDS: POTASSIUM CL. PREMIX PERIPHER. 50 ML IV SCH ×2 (11:24→12:38)
[2019-12-07] MEDS: Potassium Chloride 10 MEQ, LIDOCAINE HCL/PF 1% 1 ML in IV D5W 50 ML IV SCH ×4 (16:18→19:48)
--- NOTE | 2019-12-07 18:53 | NUR ---
MS RN CLOSING NOTES PATIENT IN BED, AWAKE, A/O X4. PATIENT IS ON ROOM AIR; BREATHING IS EVEN AND UNLABORED; NO SOB NOTED DURING THE DAY. PATIENT WAS IN AND OUT OF BED ON THE BEDSIDE COMMODE. NG-TUBE TO RIGHT NARIS PATENT AND IN PLACE, ABDOMINAL BINDER IN PLACE. SEEN BY . LANCE IV ACCESS INTACT INFUSING D5LR @ 75 MLS/HR. ALL NEEDS ATTENDED TO THROUGHOUT THE DAY. SAFETY PRECAUTIONS ON: BED IN LOW POSITION AND LOCKED, RAILS UP X2, CALL LIGHT WITHIN REACH. WILL ENDORSE TO VAT PACKER NURSE.
--- NOTE | 2019-12-07 19:45 | NUR ---
MS RN NOTES PATIENT IN BED, AWAKE, ALERT AND ORIENTED X 4. BREATHING EVEN AND UNLABORED ON ROOM AIR. SHOWS NO SIGNS OF ACUTE RESPIRATORY DISTRESS, NO ACUTE PAIN. NGT ON INTERMITTENT SUCTION IN R NARES. IV ON TED 20G RUNNING D5LR AT 75ML/HR. SHOWS NO SIGNS OF INFILTRATION, NO REDNESS. SAFETY PRECAUTIONS IN PLACE. BED IN LOWEST POSITION, LOCKED, AND CALL LIGHT KEPT WITHIN REACH. WILL CONTINUE TO MONITOR
[2019-12-07] MEDS: PHENOL/SODIUM PHENOLATE 1 BOTTLE MM PRN (20:42)
[2019-12-07 20:49] VITALS: BP 141/80
[2019-12-07] MEDS: IV D5 LR 1,000 ML IV PRN (21:57)
[2019-12-08 06:59] LABS: BASOPHILS # (AUTO) 0.1 /CMM (0.0-0.2); BASOPHILS % (AUTO) 0.7 % (0.0-2.0); EOSINOPHILS % (AUTO) 0.6 % (0.0-6.0); HEMATOCRIT 30 % (33-45); HEMOGLOBIN 10.1 g/dL (11.5-14.8); LYMPHOCYTES # (AUTO) 0.7 /CMM (0.8-4.8); LYMPHOCYTES % (AUTO) 10.5 % (20.0-44.0); MEAN CORPUSCULAR HGB CONC 33 g/dl (31.0-36.0); MEAN CORPUSCULAR VOLUME 95 fL (82-100); MONOCYTES # (AUTO) 0.5 /CMM (0.1-1.30); MONOCYTES % (AUTO) 7.5 % (2.0-12.0); NEUTROPHILS # (AUTO) 5.5 /CMM (1.8-8.9); NEUTROPHILS % (AUTO) 80.7 % (43.0-81.0); PLATELET COUNT (AUTO) 181 /CMM (150-450); WHITE BLOOD COUNT (AUTO) 6.8 K/uL (4.3-11.0)
--- NOTE | 2019-12-08 07:07 | NUR ---
MS RN NOTES PATIENT IN BED, ASLEEP, ALERT AND ORIENTED X 4. BREATHING EVEN AND UNLABORED ON ROOM AIR. SHOWS NO SIGNS OF ACUTE RESPIRATORY DISTRESS, NO ACUTE PAIN. NGT ON INTERMITTENT SUCTION IN R NARES WITH 80ML OUT. IV ON TED 20G RUNNING D5LR AT 75ML/HR. SHOWS NO SIGNS OF INFILTRATION, NO REDNESS. ALL DUE MEDICATIONS GIVEN. SAFETY PRECAUTIONS IN PLACE. BED IN LOWEST POSITION, LOCKED, AND CALL LIGHT KEPT WITHIN REACH. WILL ENDORSE TO ONCOMING NURSE.
[2019-12-08 07:19] LABS: CALCIUM, SERUM 8.7 mg/dL (8.5-10.1); CREATININE 0.6 mg/dL (0.6-1.3); POTASSIUM 3.4 mmol/L (3.5-5.1)
--- NOTE | 2019-12-08 07:30 | NUR ---
RN Opening note Received patient in bed, OA x 4, able to responds all stimuli. Pt s/p laparoscopic, does no c/o pain or distress at time. Skin is warm to touch, keep clean/dry, intact IV site. Respiratory even and unlabored in room air. Keep bed in locked with elevated HOB for ensure airway and aspiration precaution. Call light within reach, will continue to monitor.
[2019-12-08 08:00] VITALS: BP 135/77
[2019-12-08] MEDS: POTASSIUM CL. PREMIX PERIPHER. 50 ML IV SCH ×4 (08:14→11:01)
[2019-12-08] MEDS: ENOXAPARIN SODIUM 40 MG/0.4 ML DISP.SYRIN SQ SCH (08:14)
[2019-12-08] MEDS: PANTOPRAZOLE 40 MG VIAL IV SCH (08:14)
[2019-12-08] MEDS ORDERED: MINERAL OIL 133 ML (PYXIS) 1 EA ENEMA RC ONE (11:30)
[2019-12-08 16:00] VITALS: BP 132/80
--- NOTE | 2019-12-08 16:25 | NUR ---
Patient mentioned that had gas passed though and asking remove NG tube. Dr. Noam Villa placed order: clamp NG 4 hours, check residual, if < 150 ml, no n/v, then d/c the NG and start clears. Noted and carry out.
--- NOTE | 2019-12-08 18:30 | NUR ---
RN Closing note Patient in bed comfortably, does no appears pain or distress. Respiratory even and unlabored in room air. Skin is warm to touch, kept clean/dry, intact IV site. No residual observed after clamp NG tube and pt denies n/v. Keep bed in locked with elevated HOB for aspiration precaution. Call light within reach, will endorse night time babysitter.
--- NOTE | 2019-12-08 19:30 | NUR ---
MS/RN OPENING NOTES RECEIVED PATIENT IN BED RESTING. PATIENT IS ALERT AND ORIENTED X 4. NO SIGNS OF RESPIRATORY DISTRESS NOTED. PATIENT IS ON ROOM AIR TOLERATING WELL. NG TUBE IN PLACE. PATIENT HAS LEFT UPPER ARM 20 G IV ACCESS INTACT AND RUNNING D5LR AT 100 ML/HR. NO PAIN STATED AT THE MOMENT BY PATIENT. SAFETY MEASURES ARE IN PLACE, BED IS LOCKED AND PLACED IN THE LOWEST POSITION WITH ALARM ON, SIDE RAILS UP X 2. CALL LIGHT IS WITHIN REACH. WILL CONTINUE TO MONITOR PATIENT THROUGH OUT SHIFT.
--- NOTE | 2019-12-08 19:45 | NUR ---
MS/RN NOTES REMOVED PATIENTS NG TUBE. NO ACTIVE BLEEDING NOTED. PATIENT IS IN NO DISTRESS. WILL CONTINUE TO MONITOR.
[2019-12-08 20:00] VITALS: BP 152/89
--- NOTE | 2019-12-08 21:00 | NUR ---
MS/RN NOTES PATIENT IS REFUSING IV FLUIDS D5LR, SHE STATED, "I DON'T WANT THAT HOOKED AND RUNNING THROUGH ME". RISK AND BENEFITS HAVE BEEN EXPLAINED TO PATIENT. WILL CONTINUE TO MONITOR.
--- NOTE | 2019-12-09 05:00 | NUR ---
MS/RN NOTES PER PERSONNEL PSYCHOLOGIST PATIENT REFUSED LINEN CHANGED AT THIS TIME. PATIENT WAS ASKED AGAIN AND DID NOT WANT LINEN CARE AT THIS TIME. WILL ENDORSE TO DAY SHIFT.
--- NOTE | 2019-12-09 06:50 | NUR ---
MS/RN CLOSING NOTES PATIENT IN BED SLEEPING. PATIENT IS ALERT AND ORIENTED X 4. NO SIGNS OF RESPIRATORY DISTRESS NOTED. PATIENT IS ON ROOM AIR TOLERATING WELL. PATIENT HAS LEFT UPPER ARM 20 G IV ACCESS INTACT. PATIENT STATES NO PAIN AT THE MOMENT. SAFETY MEASURES ARE IN PLACE, BED IS LOCKED AND PLACED IN THE LOWEST POSITION WITH ALARM ON, SIDE RAILS UP X 2. CALL LIGHT IS WITHIN REACH. WILL ENDORSE CARE TO DAY SHIFT.
--- NOTE | 2019-12-09 07:05 | NUR ---
MS RN OPENING NOTES RECEIVED PATIENT WAKE IN BED AT THIS TIME. AOX4. PT IS ABLE TO MAKE NEEDS KNOWN. NO SOB NOTED, NO S/S OF ANY ACUTE DISTRESS NOTED, NO C/O PAIN AT THIS TIME. RESPIRATIONS EVEN AND UNLABORED ON RA. IV ACCESS ON TED G#20, INTACT, PATENT AND FLUSHING WELL. SAFETY PRECAUTIONS IN PLACE. BED IN LOWEST LOCKED POSITION, SIDE RAILS UP, HEAD OF BED ELEVATED TO SEMI FOWLERS POSITION, CALL LIGHT WITHIN REACH. WILL CONTINUE TO MONITOR
[2019-12-09 08:00] VITALS: BP 130/77
[2019-12-09 08:28] LABS: BASOPHILS # (AUTO) 0.1 /CMM (0.0-0.2); EOSINOPHILS % (AUTO) 1.3 % (0.0-6.0); HEMATOCRIT 32 % (33-45); HEMOGLOBIN 10.5 g/dL (11.5-14.8); LYMPHOCYTES # (AUTO) 0.8 /CMM (0.8-4.8); LYMPHOCYTES % (AUTO) 13.2 % (20.0-44.0); MEAN CORPUSCULAR HGB CONC 33 g/dl (31.0-36.0); MEAN CORPUSCULAR VOLUME 95 fL (82-100); MONOCYTES # (AUTO) 0.5 /CMM (0.1-1.30); MONOCYTES % (AUTO) 7.5 % (2.0-12.0); NEUTROPHILS # (AUTO) 4.6 /CMM (1.8-8.9); PLATELET COUNT (AUTO) 208 /CMM (150-450); RED BLOOD CELL COUNT(AUTO) 3.33 MIL/uL (4.0-5.2)
[2019-12-09 08:33] LABS: CALCIUM, SERUM 8.6 mg/dL (8.5-10.1); CREATININE 0.5 mg/dL (0.6-1.3); POTASSIUM 3.5 mmol/L (3.5-5.1)
--- NOTE | 2019-12-09 08:40 | NUR ---
PT REQUESTED TYLENOL FOR PAIN, PER COURTNEY CAR BARN LABORER, ORDER TYLENOL 650MG PO Q6H PRN FOR FEVER/MILD PAIN 1-3. ORDERS READ BACK AND CARRIED OUT. WILL CONTINUE TO MONITOR
[2019-12-09] MEDS: ENOXAPARIN SODIUM 40 MG/0.4 ML DISP.SYRIN SQ SCH (08:48)
[2019-12-09] MEDS: PANTOPRAZOLE 40 MG VIAL IV SCH (08:48)
[2019-12-09] MEDS: ACETAMINOPHEN 325 MG TABLET PO PRN ×2 (10:12→16:51)
--- NOTE | 2019-12-09 10:13 | NUR ---
PT C/O OF MILD LOWER ABDOMINAL ACHING PAIN OF 3/10. TYLENOL 650MG PO Q6HR PRN. WILL CONTINUE TO MONITOR
[2019-12-09 16:00] VITALS: BP 139/80
--- NOTE | 2019-12-09 16:52 | NUR ---
PT C/O OF ABDOMINAL THROBBING PAIN OF 07/17. VS CHECKED. BP 130/70, HR 82, RR 20, T 98.8, SPO2 96%. TYLENOL 650MG PO Q6HR PRN. WILL CONTINUE TO MONITOR Addendum: 12/09/19 at 1721 by LAMAR GLASGOW RN PT C/O OF ABDOMINAL THROBBING PAIN OF 10. VS CHECKED. BP 139/80, HR 86, RR 20, T 98.1, SPO2 96%. TYLENOL 650MG PO Q6HR PRN. WILL CONTINUE TO MONITOR
--- NOTE | 2019-12-09 17:42 | NUR ---
PER BERNIE DONAHUE, ADVANCE PT'S DIET FROM CLEAR LIQUID TO FULL LIQUID STARTING TOMORROW 12/10/2019. PT SHOULD EAT ALL MEALS WHILE SITTING IN CHAIR. ORDERS READ BACK AND CARRIED OUT. WILL CONTINUE TO MONITOR AND ENDORSE TO MACHINE FANCY STITCHER NURSE FOR KRISTOFER
--- NOTE | 2019-12-09 18:56 | NUR ---
MS RN CLOSING NOTES PT AWAKE IN BED AT THIS TIME. PT REMAINED STABLE THROUGHOUT SHIFT. ALL CARE, NEEDS, WOUND TREATMENT, MEDICATIONS ADMINISTERED ANTICIPATED PER SCHEDULE. PT KEPT CLEAN AND DRY. SAFETY PRECAUTIONS IN PLACE, BED IN LOWEST LOCKED POSITION, HOB ELEVATED TO SEMI FOWLERS POSITION, SIDE RAILS UP, CALL LIGHT WITHIN REACH, WILL ENDORSE TO NETWORK CONTRACTOR NURSE FOR KRISTOFER.
[2019-12-09 20:00] VITALS: BP 126/73
--- NOTE | 2019-12-09 20:00 | NUR ---
MS OPENING NOTES RECEIVED PATIENT IN BED, AWAKE, A/0 X 4, BREATHING AT ROOM AIR, UNLABORED BREATHING, NO SIGNS OF RESPIRATORY DISTRESS, TED #20G, NO COMPLAINTS OF PAIN, SIDE RAILS UP.
[2019-12-10] MEDS: ACETAMINOPHEN 325 MG TABLET PO PRN ×2 (03:49→19:42)
--- NOTE | 2019-12-10 06:40 | NUR ---
MS RN NOTES ENDORSED PATIENT IN BED, AWAKE, A/0 X 4, BREATHING AT ROOM AIR, UNLABORED BREATHING, NO SIGNS OF RESPIRATORY DISTRESS, TED #20G, NO REDNESS OR INFILTRATION NOTED, COMPLAINTS OF PAIN, PAIN MED GIVEN, SIDE RAILS UP FOR SAFETY.
--- NOTE | 2019-12-10 07:15 | NUR ---
MS RN NOTES PATIENT IN BED ALERT ORIENTED X4. NO ACUTE DISTRESS NOTED. BREATHING UNLABORED. IV ACCESS PATENT AND INTACT, NO REDNESS, NO SWELLING NOTED. ABDOMINAL SURGICAL DRESSING CLEAN DRY AND INTACT. SAFETY MEASURES IN PLACE. CALL LIGHT WITHIN REACH. WILL CONTINUE TO MONITOR ACCORDINGLY.
[2019-12-10 08:00] VITALS: BP 134/80
[2019-12-10 08:02] LABS: BASOPHILS # (AUTO) 0.1 /CMM (0.0-0.2); BASOPHILS % (AUTO) 1.2 % (0.0-2.0); EOSINOPHILS % (AUTO) 1.9 % (0.0-6.0); HEMATOCRIT 32 % (33-45); HEMOGLOBIN 10.5 g/dL (11.5-14.8); LYMPHOCYTES % (AUTO) 18.2 % (20.0-44.0); MEAN CORPUSCULAR HGB CONC 33 g/dl (31.0-36.0); MEAN CORPUSCULAR VOLUME 95 fL (82-100); MONOCYTES # (AUTO) 0.4 /CMM (0.1-1.30); MONOCYTES % (AUTO) 6.7 % (2.0-12.0); PLATELET COUNT (AUTO) 245 /CMM (150-450); RED BLOOD CELL COUNT(AUTO) 3.37 MIL/uL (4.0-5.2); WHITE BLOOD COUNT (AUTO) 5.6 K/uL (4.3-11.0)
[2019-12-10 08:23] LABS: CALCIUM, SERUM 8.7 mg/dL (8.5-10.1); CREATININE 0.7 mg/dL (0.6-1.3); POTASSIUM 3.1 mmol/L (3.5-5.1)
[2019-12-10] MEDS: PANTOPRAZOLE 40 MG TABLET.DR PO SCH (09:56)
[2019-12-10] MEDS: POTASSIUM CHLORIDE 20 MEQ TAB.PRT.SR PO SCH ×3 (09:56→13:30)
[2019-12-10] MEDS: ENOXAPARIN SODIUM 40 MG/0.4 ML DISP.SYRIN SQ SCH (09:57)
--- NOTE | 2019-12-10 14:41 | NUR ---
MS RN NOTES SEEN AND EVALUATED BY ACID TENDER GODFREY LYNCH WITH NEW ORDERS MADE, NOTED AND CARRIED OUT.
[2019-12-10] MEDS: ENSURE ENLIVE 237 ML LIQUID (VANILLA) PO SCH (15:52)
[2019-12-10 16:00] VITALS: BP 126/73
--- NOTE | 2019-12-10 19:00 | NUR ---
MS RN NOTES PATIENT IN BED ALERT ORIENTED X4. NO ACUTE DISTRESS NOTED. BREATHING UNLABORED. IV ACCESS PATENT AND INTACT, NO REDNESS, NO SWELLING NOTED. ABDOMINAL SURGICAL DRESSING CLEAN DRY AND INTACT. TOLERATED CURRENT DIET WELL, NO NAUSEA , NO VOMITING. SAFETY MEASURES IN PLACE. NEEDS ATTENDED AND ANTICIPATED. CALL LIGHT WITHIN REACH. WILL ENDORSE TO NIGHT NURSE FOR CONTINUITY OF CARE.
[2019-12-10 20:00] VITALS: BP 103/66
[2019-12-11] MEDS: MORPHINE SULFATE INJ 4 MG/ML DISP.SYRIN IV PRN (05:34)
--- NOTE | 2019-12-11 06:20 | NUR ---
MS RN NOTES AWAKE & RESPONSIVE. NOT IN ANY DISTRESS. NO SOB NOTED. DENIES ANY PAIN OR DISCOMFORT AT THIS TIME. WITH IV-HL PATENT & INTACT. CALL LIGHT WITHIN REACH. BED IN LOWEST POSITION. SR UP X 3 WITH BED ALARM ON FOR SAFETY. WILL ENDORSE TO NEXT SHIFT.
[2019-12-11 06:45] LABS: EOSINOPHILS % (AUTO) 5.1 % (0.0-6.0); HEMATOCRIT 30 % (33-45); LYMPHOCYTES # (AUTO) 1.2 /CMM (0.8-4.8); LYMPHOCYTES % (AUTO) 25.6 % (20.0-44.0); MEAN CORPUSCULAR HGB CONC 33 g/dl (31.0-36.0); MEAN CORPUSCULAR VOLUME 95 fL (82-100); MONOCYTES # (AUTO) 0.5 /CMM (0.1-1.30); NEUTROPHILS # (AUTO) 2.7 /CMM (1.8-8.9); NEUTROPHILS % (AUTO) 58.3 % (43.0-81.0); PLATELET COUNT (AUTO) 252 /CMM (150-450); RED BLOOD CELL COUNT(AUTO) 3.18 MIL/uL (4.0-5.2); WHITE BLOOD COUNT (AUTO) 4.6 K/uL (4.3-11.0)
[2019-12-11 06:53] LABS: CALCIUM, SERUM 8.5 mg/dL (8.5-10.1); CREATININE 0.6 mg/dL (0.6-1.3); POTASSIUM 4.1 mmol/L (3.5-5.1)
--- NOTE | 2019-12-11 07:15 | NUR ---
MS RN NOTES PATIENT IN BED ALERT ORIENTED X 4. NO ACUTE DISTRESS NOTED. BREATHING UNLABORED. IV ACCESS PATENT AND INTACT, NO REDNESS, NO SWELLING NOTED. ABDOMINAL SURGICAL DRESSING CLEAN DRY AND INTACT. HEAD OF BED ELEVATED. SAFETY MEASURES IN PLACE. CALL LIGHT WITHIN REACH. WILL CONTINUE TO MONITOR ACCORDINGLY.
[2019-12-11 08:00] VITALS: BP 123/70
[2019-12-11] MEDS: ENOXAPARIN SODIUM 40 MG/0.4 ML DISP.SYRIN SQ SCH (08:52)
[2019-12-11] MEDS: PANTOPRAZOLE 40 MG TABLET.DR PO SCH (08:52)
--- NOTE | 2019-12-11 08:53 | NUR ---
MS RN NOTES PATIENT REFUSED LOVENOX DESPITE OF EXPLANATION OF RISKS AND BENEFITS, MAGNETIC TESTING TECHNICIAN CANDY PAYTON PRESENT ON THE FLOOR AWARE.
[2019-12-11] MEDS: ENSURE ENLIVE 237 ML LIQUID (VANILLA) PO SCH (11:24)
[2019-12-11] MEDS: ACETAMINOPHEN 325 MG TABLET PO PRN (14:05)
--- NOTE | 2019-12-11 14:07 | NUR ---
MS RN NOTES PATIENT COMPLAINT ABDOMINAL 3/10 PAIN, TYLENOL GIVEN ORDERED.
[2019-12-11 16:00] VITALS: BP 107/64
--- NOTE | 2019-12-11 18:55 | NUR ---
MS RN NOTES PATIENT SITTING IN THE CHAIR JUST FINISHED EATING DINNER. ALERT ORIENTED X 4. NO ACUTE DISTRESS NOTED. BREATHING UNLABORED. IV ACCESS PATENT AND INTACT, NO REDNESS, NO SWELLING NOTED. ABDOMINAL SURGICAL DRESSING CLEAN DRY AND INTACT. HEAD OF BED ELEVATED. TOLERATING CURRENT DIET WELL. HAD BOWEL MOVEMENT TODAY. NEEDS ATTENDED AND ANTICIPATED. SAFETY MEASURES IN PLACE. CALL LIGHT WITHIN REACH. WILL ENDORSE TO NIGHT NURSE FOR CONTINUITY OF CARE.
--- NOTE | 2019-12-11 19:00 | NUR ---
MS/RN OPENING NOTES: PATIENT IN BED ALERT ORIENTED X 4. VERBALLY RESPONSIVE AND ABLE TO MAKE NEEDS KNOWN. NO ACUTE DISTRESS NOTED. BREATHING UNLABORED. IV ACCESS ON THE L UA #20G PATENT AND INTACT, NO REDNESS, NO SWELLING NOTED. ABDOMINAL SURGICAL DRESSING CLEAN DRY AND INTACT. HEAD OF BED ELEVATED. SAFETY MEASURES IN PLACE. CALL LIGHT WITHIN REACH. WILL CONTINUE TO MONITOR ACCORDINGLY.
[2019-12-11 20:00] VITALS: BP 101/64
[2019-12-12] MEDS: ACETAMINOPHEN 325 MG TABLET PO PRN (04:41)
--- NOTE | 2019-12-12 04:44 | NUR ---
MS/RN NOTES: PT COMPLAINED OF MILD PAIN. REQUESTED FOR TYLENOL. ADMINISTERED 650MG TYLENOL PO ORDERED. TOLERATED WELL. WILL CONTINUE TO MONITOR.
--- NOTE | 2019-12-12 07:26 | NUR ---
MS/RN CLOSING NOTES: PATIENT IN BED RESTING COMFORTABLY. REMAINS ALERT ORIENTED X 4. VERBALLY RESPONSIVE AND ABLE TO MAKE NEEDS KNOWN. NO ACUTE DISTRESS NOTED. BREATHING UNLABORED. NO S/O PAIN AT THIS TIME. IV ACCESS ON THE L UA #20G PATENT AND INTACT. ABDOMINAL SURGICAL DRESSING CLEAN DRY AND INTACT. HEAD OF BED ELEVATED. SAFETY MEASURES IN PLACE. CALL LIGHT WITHIN REACH. ENDORSED TO DAY SHIFT RN FOR KRISTOFER.
[2019-12-12 08:00] VITALS: BP 110/69
--- NOTE | 2019-12-12 08:00 | NUR ---
received pt. in am alert and oriented x4.abd. dressing dry and intact.no specific complaints offered.
[2019-12-12 08:22] LABS: BASOPHILS # (AUTO) 0.1 /CMM (0.0-0.2); BASOPHILS % (AUTO) 0.8 % (0.0-2.0); EOSINOPHILS % (AUTO) 2.4 % (0.0-6.0); HEMATOCRIT 30 % (33-45); HEMOGLOBIN 10.3 g/dL (11.5-14.8); MEAN CORPUSCULAR HGB CONC 34 g/dl (31.0-36.0); MEAN CORPUSCULAR VOLUME 95 fL (82-100); MONOCYTES # (AUTO) 0.5 /CMM (0.1-1.30); MONOCYTES % (AUTO) 7.9 % (2.0-12.0); NEUTROPHILS # (AUTO) 5.2 /CMM (1.8-8.9); NEUTROPHILS % (AUTO) 74.9 % (43.0-81.0); PLATELET COUNT (AUTO) 292 /CMM (150-450); RED BLOOD CELL COUNT(AUTO) 3.19 MIL/uL (4.0-5.2)
[2019-12-12 08:31] LABS: CALCIUM, SERUM 7.6 mg/dL (8.5-10.1); CREATININE 0.7 mg/dL (0.6-1.3); POTASSIUM 3.6 mmol/L (3.5-5.1)
[2019-12-12] MEDS: ENOXAPARIN SODIUM 40 MG/0.4 ML DISP.SYRIN SQ SCH (08:53)
[2019-12-12] MEDS: ENSURE ENLIVE 237 ML LIQUID (VANILLA) PO SCH (08:53)
[2019-12-12] MEDS: PANTOPRAZOLE 40 MG TABLET.DR PO SCH (08:54)
--- NOTE | 2019-12-12 11:00 | NUR ---
up with physicaltx. finesse. well.
--- NOTE | 2019-12-12 13:00 | NUR ---
surgeon's pastry assistant in and requested harness worker binder use and dressing chg. technique.rn complied.
--- NOTE | 2019-12-12 13:47 | NUR ---
RFUSED DISCHARGE PHOTO OF [facility].
--- NOTE | 2019-12-12 15:12 | NUR ---
pt. given all dc papers and belonging sheet. all signed,hep lock out.ride waiting at [facility].professor of finance transported pt. to [facility] for dcpt. supplied with phone no. and address.
== END 2019-12-12 15:15 | disposition home health service (06) | DRG 329 ==
LOC: ER 08:50 → MED 11:54
PROVIDERS: ADMIT Nurse Practitioner Acute Care; ATTEND Nurse Practitioner Acute Care
PROC: 0DQH0ZZ Repair Cecum, Open Approach (ICD-10-PCS; principal; 2019-12-05)
PROC: 0WQF0ZZ Repair Abdominal Wall, Open Approach (ICD-10-PCS; 2019-12-05)
PROC: 0WJF4ZZ Inspection of Abdominal Wall, Percutaneous Endoscopic Approach (ICD-10-PCS; 2019-12-05)
DX: K56.50 Intestinal adhesions [bands], unspecified as to partial versus complete obstruction (principal); E43 Unspecified severe protein-calorie malnutrition; R18.8 Other ascites; E87.2 Acidosis; R64 Cachexia; N17.9 Acute kidney failure, unspecified; Z68.1 Body mass index [BMI] 19.9 or less, adult; J90 Pleural effusion, not elsewhere classified; K43.6 Other and unspecified ventral hernia with obstruction, without gangrene; K43.0 Incisional hernia with obstruction, without gangrene; K56.2 Volvulus; E87.6 Hypokalemia; I10 Essential (primary) hypertension; M85.80 Other specified disorders of bone density and structure, unspecified site; N20.0 Calculus of kidney; D64.9 Anemia, unspecified; D72.829 Elevated white blood cell count, unspecified; D69.6 Thrombocytopenia, unspecified; R16.0 Hepatomegaly, not elsewhere classified; E88.09 Other disorders of plasma-protein metabolism, not elsewhere classified; Z53.31 Laparoscopic surgical procedure converted to open procedure; K76.9 Liver disease, unspecified; Z82.49 Family history of ischemic heart disease and other diseases of the circulatory system; Z80.0 Family history of malignant neoplasm of digestive organs; Z87.442 Personal history of urinary calculi; D18.09 Hemangioma of other sites; K76.89 Other specified diseases of liver; K56.7 Ileus, unspecified
CPT/HCPCS: 36415; 71045-TC; 74018; 74178; 80048-TC; 80053-TC; 80061-TC; 80076-TC; 81000-TC; 82105; 82248-TC; 82728-TC; 83540-TC; 83605-TC; 83735-TC; 84100-TC; 85025-TC; 85730-TC; 87081-TC; 93307-TC; 97116-TC; 97530-TC; A6209; C9113; G0378; J0330; J1100; J1650; J2270; J2405; J2543; J2704; J3010; J3480; J3490; J7040; J7050; J7060; Q9963; Q9967

== ENCOUNTER 2020-01-12 16:21 | Emergency (ER) | payer MEDICARE, OTHER ==
[~2020-01-12] VITALS: Ht 149.9 cm; Wt 30.8 kg
--- NOTE | 2020-01-12 16:50 | NUR ---
PAGELeslie RADFORD BY DR. GALARZA
[2020-01-12 17:03] LABS: BASOPHILS # (AUTO) 0.1 /CMM (0.0-0.2); EOSINOPHILS % (AUTO) 0.2 % (0.0-6.0); HEMATOCRIT 35 % (33-45); HEMOGLOBIN 11.3 g/dL (11.5-14.8); LYMPHOCYTES % (AUTO) 11.4 % (20.0-44.0); MEAN CORPUSCULAR HGB CONC 32 g/dl (31.0-36.0); MEAN CORPUSCULAR VOLUME 96 fL (82-100); MONOCYTES # (AUTO) 0.5 /CMM (0.1-1.30); MONOCYTES % (AUTO) 5.8 % (2.0-12.0); NEUTROPHILS # (AUTO) 6.9 /CMM (1.8-8.9); NEUTROPHILS % (AUTO) 81.6 % (43.0-81.0); PLATELET COUNT (AUTO) 178 /CMM (150-450); RED BLOOD CELL COUNT(AUTO) 3.62 MIL/uL (4.0-5.2); WHITE BLOOD COUNT (AUTO) 8.5 K/uL (4.3-11.0)
--- NOTE | 2020-01-12 17:07 | NUR ---
PAIN TO ABDOMINAL SURGERY SITE. SENT BY DR RADFORD FOR FURTHER EVAL. PATIENT A/OX4, BREATHING EVEN AND UNLABORED, NO SOB NOTED, NEEDS ATTENDED. KEPT COMFORTABLE.
[2020-01-12 17:12] LABS: CALCIUM, SERUM 9.4 mg/dL (8.5-10.1); CREATININE 0.7 mg/dL (0.6-1.3); POTASSIUM 3.9 mmol/L (3.5-5.1)
--- NOTE | 2020-01-12 17:13 | NUR ---
PATIENT CAME BACK FROM CT.
[2020-01-12 17:18] LABS: ALBUMIN 4.1 g/dL (3.4-5.0); BILIRUBIN,DIRECT 0.1 mg/dL (0.0-0.2); BILIRUBIN,TOTAL 0.5 mg/dL (0.2-1.0); TOTAL PROTEIN, SERUM 7.5 g/dL (6.4-8.2)
[2020-01-12] MEDS ORDERED: LIDOCAINE 1%-EPI 1:100,000 20 ML VIAL ONE ×2 (17:43→17:45)
[2020-01-12] MEDS ORDERED: LIDOCAINE HCL/MPF 1% 30 ML VIAL IJ ONE (17:44)
[2020-01-12] MEDS ORDERED: LIDOCAINE 2%-EPI 1:100,000 30 ML VIAL TP ONE (18:00)
--- NOTE | 2020-01-12 18:00 | NUR ---
D&C DONE BY DR. GALARZA, COVERED WITH DRY DRESSING.
--- NOTE | 2020-01-12 18:10 | NUR ---
WOUND CULTURE SWAB SENT.
--- NOTE | 2020-01-12 18:20 | NUR ---
IV removed. Catheter intact and site benign. Pressure and 4x4 applied to site. No bleeding noted.Patient discharged to home in stable condition. Written and verbal after care instructions given. Patient verbalizes understanding of instruction.
[2020-01-12 18:25] VITALS: BP 114/58
== END 2020-01-12 18:42 | disposition home or self-care (01) ==
LOC: ER 16:24
DX: T81.49XA Infection following a procedure, other surgical site, initial encounter (principal); L02.211 Cutaneous abscess of abdominal wall; I10 Essential (primary) hypertension; E78.00 Pure hypercholesterolemia, unspecified; Z98.890 Other specified postprocedural states; Z60.2 Problems related to living alone; Z79.899 Other long term (current) drug therapy; Z79.82 Long term (current) use of aspirin
CPT/HCPCS: 10060; 36415; 74176; 80048; 80076; 85025; 85730; 87070; 87077; 99284; A6403; A6407; J3490

== ENCOUNTER 2020-01-14 15:09 | Emergency (ER) | payer MEDICARE, OTHER ==
[~2020-01-14] VITALS: Ht 149.9 cm; Wt 31.3 kg
[2020-01-14 15:19] VITALS: BP 119/74
--- NOTE | 2020-01-14 15:56 | NUR ---
seen by dr melendez for wound check. no signs of infection. provided w/ dressing change. discharge in stable condition.
== END 2020-01-14 15:59 | disposition home or self-care (01) ==
LOC: ER 15:14
DX: Z48.01 Encounter for change or removal of surgical wound dressing (principal); I10 Essential (primary) hypertension; E78.00 Pure hypercholesterolemia, unspecified; Z60.2 Problems related to living alone; Z79.899 Other long term (current) drug therapy; Z79.82 Long term (current) use of aspirin

== ENCOUNTER 2020-11-24 07:38 | Inpatient (IN) | payer MEDICAID, MEDICARE, OTHER ==
[~2020-11-24] VITALS: Ht 149.9 cm; Wt 36.3 kg
[~2020-11-24 07:38] MED LIST changes: -LACT10SO PO; +LACT10SO3 PO
--- NOTE | 2020-11-24 08:00 | NUR ---
BIB [id number] From Home "Abdominal Pain/nausea. Hx of obstruction in past". On room air, breathing evenly and unlabored. Connected to the monitor and pulse ox. Kept comfortable, will continue to monitor accordingly.
[2020-11-24 08:08] LABS: BASOPHILS % (AUTO) 0.7 % (0.0-2.0); EOSINOPHILS % (AUTO) 1.1 % (0.0-6.0); HEMATOCRIT 37 % (33-45); HEMOGLOBIN 12.2 g/dL (11.5-14.8); LYMPHOCYTES # (AUTO) 1.3 K/uL (0.8-4.8); LYMPHOCYTES % (AUTO) 19.6 % (20.0-44.0); MEAN CORPUSCULAR HGB CONC 33 g/dl (31.0-36.0); MEAN CORPUSCULAR VOLUME 94 fL (82-100); MONOCYTES # (AUTO) 0.4 K/uL (0.1-1.30); MONOCYTES % (AUTO) 5.4 % (2.0-12.0); NEUTROPHILS # (AUTO) 4.9 K/uL (1.8-8.9); NEUTROPHILS % (AUTO) 73.2 % (43.0-81.0); PLATELET COUNT (AUTO) 178 K/uL (150-450); RED BLOOD CELL COUNT(AUTO) 3.93 MIL/uL (4.0-5.2); WHITE BLOOD COUNT (AUTO) 6.7 K/uL (4.3-11.0)
[2020-11-24 08:28] LABS: CALCIUM, SERUM 9.4 mg/dL (8.5-10.1); CARBON DIOXIDE 29 mmol/L (21-32); CHLORIDE 105 mmol/L (98-107); CREATININE 0.9 mg/dL (0.6-1.3); GLUCOSE 113 mg/dL (74-106); SODIUM SERUM 143 mmol/L (136-145); UREA NITROGEN, BLOOD 31 mg/dL (7-18)
[2020-11-24 08:33] LABS: ALANINE AMINOTRANSFERASE 21 U/L (12-78); ALBUMIN 4.1 g/dL (3.4-5.0); ALKALINE PHOSPHATASE 46 U/L (46-116); ASPARTATE AMINOTRANSFERASE 21 U/L (15-37); BILIRUBIN,TOTAL 0.3 mg/dL (0.2-1.0); LIPASE 226 U/L (73-393); TOTAL PROTEIN, SERUM 7.5 g/dL (6.4-8.2)
[2020-11-24] MEDS ORDERED: ONDANSETRON HCL/PF 4 MG/2 ML VIAL ONE (08:59)
[2020-11-24] MEDS ORDERED: MORPHINE SULFATE INJ 2 MG/ML DISP.SYRIN ONE (08:59)
[2020-11-24] MEDS ORDERED: IV NS 0.9% 500 ML BAG IV ONE (09:00)
[2020-11-24] MEDS ORDERED: ONDANSETRON HCL/PF - ER 4 MG/2 ML VIAL IV ONE (09:00)
[2020-11-24] MEDS ORDERED: MORPHINE SULFATE INJ 2 MG/ML DISP.SYRIN IV ONE (09:00)
--- NOTE | 2020-11-24 09:48 | NUR ---
SUBMITTED MOVE SHEET
--- NOTE | 2020-11-24 09:49 | NUR ---
LEFT FOR DR. WAITE
[2020-11-24] MEDS ORDERED: PANT40TA2 PO (10:04)
[2020-11-24] MEDS ORDERED: MULT-447 PO (10:04)
[2020-11-24] MEDS ORDERED: ACET-868 PO (10:04)
--- NOTE | 2020-11-24 11:34 | NUR ---
patent is accepted at [facility] number for report [phone].
[2020-11-24] MEDS ORDERED: Z GUARD REMEDY 2 OZ OINT TP PRN (13:30)
[2020-11-24] MEDS ORDERED: MORPHINE SULFATE INJ 2 MG/ML DISP.SYRIN IV PRN (13:30)
[2020-11-24] MEDS ORDERED: ONDANSETRON HCL/PF 4 MG/2 ML VIAL IVP PRN (13:30)
[2020-11-24] MEDS ORDERED: DIATR MEGLU/DIATRIZOATE SODIUM 120 ML BOTTLE (GASTROGRAPHIN) ONE (13:53)
--- NOTE | 2020-11-24 14:55 | NUR ---
RECIEVED BED 310-1
--- NOTE | 2020-11-24 15:08 | NUR ---
report given to Mauro IVORY for roberto.
--- NOTE | 2020-11-24 15:13 | NUR ---
wheeled patient via gurney accompanied by EMT in no distress. To room 310.
--- NOTE | 2020-11-24 15:30 | NUR ---
MS RN NOTES PATIENT ADMITTED FROM ER. PATIENT ON A GURNEY WITH NO SIGNS OF DISTRESS. PATIENT IS ALERT AND ORIENTED X 4. PATIENT ABLE TO AMBULATE WITH WALKER AND ABLE TO GO TO THE BATHROOM AND MAKE NEEDS KNOWN. PATIENT WITH RIGHT AC G 18, PATENT AND INTACT. WITH SKIN INTACT. SAFETY MEASURES ENSURED WITH BED LOCKED AND PLACED ON A LOWEST POSITION. SIDE RAILS RAISED AND BEDSIDE TABLE AND CALL LIGHT WITHIN REACH AT ALL TIMES. PATIENT HAD BEEN MAKING TRIPS GOING TO THE BATHROOM WITH POSITIVE BOWEL MOVEMENT AND VERBALIZED RELIEF FROM INITIAL ABDOMINAL PAIN THAT STARTED THIS AM AROUND 0530. DR. CAREY NOTIFIED OF ADMISSION AND PATIENT WAS SEEN BY DR. RAMIREZ OF SURGERY AND WORKS WITH DR. RADFORD. WILL CONTINUE TO MONITOR PATIENT.
--- NOTE | 2020-11-24 19:00 | NUR ---
MS RN CLOSING NOTES PATIENT IS ALERT AND ORIENTED X 4. PATIENT ABLE TO AMBULATE WITH WALKER AND ABLE TO GO TO THE BATHROOM AND MAKE NEEDS KNOWN. PATIENT WITH RIGHT AC G 18, PATENT AND INTACT. PATIENT REFUSED IVF OF THIS TIME BECAUSE OF HER FREQUENT TRIPS TO THE BATHROOM. EXPLAINED IMPORTANCE AND VERBALIZED UNDERSTANDIGN BUT STILL REFUSED FOR NOW. SAFETY MEASURES ENSURED WITH BED LOCKED AND PLACED ON A LOWEST POSITION. SIDE RAILS RAISED AND BEDSIDE TABLE AND CALL LIGHT WITHIN REACH AT ALL TIMES. PATIENT MAINTAINED ON NPO. ENDORSED TO NEXT SHIFT FOR CONTINUITY OF CARE.
[2020-11-24 20:00] VITALS: BP 129/74
--- NOTE | 2020-11-24 20:00 | NUR ---
MS RN OPENING NOTES Patient is awake, A&Ox4. States that she feels relieved of abdominal pain after having Morphine in ER and multiple BMs. Not connected to fluids at this time pt refuse d/t frequency of BMs/needing to use bathroom. Able to walk by herself steadily using walker.
--- NOTE | 2020-11-25 | NUR ---
Patient reported having 14 bowel movements total. Most current BM is brown, loose, watery but with pieces in it. Abd Xray shows no bowel obstruction. Patient requests to be on clear liquid diet. Warehouse Unloader stated okay for clear liquids but tonight try to keep it to water only.
--- NOTE | 2020-11-25 05:27 | NUR ---
Patient slept well once diarrhea subsided though easy to wake. A&Ox4. Tolerating IVF and water PO well. Patient denies any abdominal pain.
[2020-11-25 06:38] LABS: BASOPHILS # (AUTO) 0.1 K/uL (0.0-0.2); BASOPHILS % (AUTO) 1.1 % (0.0-2.0); EOSINOPHILS % (AUTO) 1.7 % (0.0-6.0); HEMATOCRIT 32 % (33-45); HEMOGLOBIN 10.7 g/dL (11.5-14.8); LYMPHOCYTES # (AUTO) 1.6 K/uL (0.8-4.8); LYMPHOCYTES % (AUTO) 33.9 % (20.0-44.0); MEAN CORPUSCULAR HGB CONC 33 g/dl (31.0-36.0); MEAN CORPUSCULAR VOLUME 94 fL (82-100); MONOCYTES # (AUTO) 0.4 K/uL (0.1-1.30); NEUTROPHILS # (AUTO) 2.6 K/uL (1.8-8.9); NEUTROPHILS % (AUTO) 55.3 % (43.0-81.0); PLATELET COUNT (AUTO) 139 K/uL (150-450); RED BLOOD CELL COUNT(AUTO) 3.43 MIL/uL (4.0-5.2); WHITE BLOOD COUNT (AUTO) 4.8 K/uL (4.3-11.0)
--- NOTE | 2020-11-25 07:22 | NUR ---
MS RN OPENING RECEIVED PT AWAKE IN BED IN NO ACUTE SIGN OF DISTRESS. A/O X4. ABLE TO MAKE NEEDS KNOWN, DENIES PAIN AT THIS TIME. ON ROOM AIR, TOLERATING WELL, BREATHING EVEN AND UNLABORED. IV ACCESS ON RAC G#18 INTACT AND PATENT, IVF OF D5 1/2 NS RUNNING AT 75ML/HR, NO S/S OF INFILTRATION NOTED, SAFETY MEASURES IN PLACE: BED IN LOWEST LOCKED POSITION W/ SIDE RAILS UP X2. CALL LIGHT W/IN EASY REACH OF PT. WILL CONTINUE TO MONITOR PT.
[2020-11-25 07:32] LABS: CALCIUM, SERUM 8.7 mg/dL (8.5-10.1); CREATININE 0.7 mg/dL (0.6-1.3); MAGNESIUM 2.3 mg/dL (1.8-2.4); PHOSPHORUS 3.4 mg/dL (2.5-4.9); POTASSIUM 3.3 mmol/L (3.5-5.1)
[2020-11-25 07:57] LABS: THYROID STIMULATING HORMONE 0.929 uIU/mL (0.358-3.74)
[2020-11-25 08:00] VITALS: BP 104/70
[2020-11-25] MEDS: PANTOPRAZOLE 40 MG VIAL IV SCH (08:20)
[2020-11-25] MEDS ORDERED: POTASSIUM CHLORIDE 20 MEQ POWDER PACKET PO SCH (08:30)
[2020-11-25] MEDS: IV D5/0.45 NACL 1,000 ML IV PRN ×2 (09:18→23:54)
[2020-11-25 16:00] VITALS: BP 93/55
--- NOTE | 2020-11-25 16:00 | NUR ---
RN NOTE PT WITH CURRENT DIET ORDER FOR BREAKFAST AND LUNCH AND TOLERATED WELL WITH NO C/O NAUSEA/VOMITTING.
--- NOTE | 2020-11-25 18:45 | NUR ---
RN CLOSING NOTE PT AWAKE IN BED, IN SEMI-FOWLERS POSITION. A/O X4, ABLE TO MAKE NEEDS KNOWN. DENIES ANY PAIN OR DISCOMFORT AT THIS TIME. RESPIRATIONS EVEN AND UNLABORED, ON ROOM AIR AND TOLERATING WELL. IV ACCESS ON R-AC #18 INTACT AND PATENT, NO S/S OF INFILTRATION NOTED. AMBULATES TO BR WITH FWW WITH STANDBY ASSIST PROVIDED. ACTIVITY TOLERATED WELL. SAFETY MEASURES IN PLACE: BED IN LOWEST LOCKED POSITION W/ SIDE RAILS UP X2. CALL LIGHT W/IN EASY REACH. WILL ENDORSE TO NEXT SHIFT NURSE.
--- NOTE | 2020-11-25 19:45 | NUR ---
MS RN NOTES PT AWAKE IN BED, IN SEMI-FOWLERS POSITION. A/O X4, ABLE TO MAKE NEEDS KNOWN. DENIES ANY PAIN OR DISCOMFORT AT THIS TIME. RESPIRATIONS EVEN AND UNLABORED, ON ROOM AIR AND TOLERATING WELL. IV ACCESS ON R-AC #18 INTACT AND PATENT, NO S/S OF INFILTRATION NOTED. AMBULATES TO BR WITH FWW WITH STANDBY ASSIST PROVIDED. ACTIVITY TOLERATED WELL. SAFETY MEASURES IN PLACE: BED IN LOWEST LOCKED POSITION W/ SIDE RAILS UP X2. CALL LIGHT W/IN EASY REACH. WILL CONTINUE TO MONITOR.
[2020-11-25 20:00] VITALS: BP 100/64
--- NOTE | 2020-11-26 06:41 | NUR ---
MS RN NOTES PT AWAKE IN BED, IN SEMI-FOWLERS POSITION. A/O X4, ABLE TO MAKE NEEDS KNOWN. DENIES ANY PAIN OR DISCOMFORT AT THIS TIME. RESPIRATIONS EVEN AND UNLABORED, ON ROOM AIR AND TOLERATING WELL. SAFETY MEASURES IN PLACE: BED IN LOWEST LOCKED POSITION W/ SIDE RAILS UP X2. CALL LIGHT W/IN EASY REACH. WILL ENDORSE CARE TO DAY SHIFT NURSE.
--- NOTE | 2020-11-26 08:00 | NUR ---
m/s power reactor operator: initial assessment received pt in bed awake, a/ox4; ambulatory. no c/o n/v or abdominal pain. ambulatory. tolerating her diet. instructed to call for assistance. will continue to monitor.
[2020-11-26] MEDS: PANTOPRAZOLE 40 MG VIAL IV SCH (09:05)
[2020-11-26 10:04] VITALS: BP 121/68
--- NOTE | 2020-11-26 11:30 | NUR ---
m/s hog operator: md visit seen by dr. cody and plan to d'c pt today. pt aware and agreeable. pt to go this afternoon. will continue to monitor.
--- NOTE | 2020-11-26 13:40 | NUR ---
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 cody to put the d'c home order. f/u made, left message. pt aware. pt request to remove h/l. h/l removed with tip intact. will continue to monitor.
--- NOTE | 2020-11-26 15:00 | NUR ---
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 pt for d'c home, awaiting order.
--- NOTE | 2020-11-26 15:45 | NUR ---
m/s help desk support: d'c instructions discharge instructions given to pt and verbalized understanding. friend to pick her up at 1630 as stated. valuables returned to pt.
--- NOTE | 2020-11-26 16:35 | NUR ---
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
== END 2020-11-26 16:35 | disposition home or self-care (01) | DRG 390 ==
LOC: ER 07:46 → TRANSITION 11:02 → MED 14:56
PROVIDERS: ATTEND Hospitalist
DX: K56.600 Partial intestinal obstruction, unspecified as to cause (principal); D18.03 Hemangioma of intra-abdominal structures; E78.5 Hyperlipidemia, unspecified; N20.0 Calculus of kidney; R16.0 Hepatomegaly, not elsewhere classified; I10 Essential (primary) hypertension; Z87.442 Personal history of urinary calculi; K56.7 Ileus, unspecified; K59.09 Other constipation; Z20.822 Contact with and (suspected) exposure to COVID-19
CPT/HCPCS: 36415; 74250-TC; 80048-TC; 80061-TC; 80076-TC; 83690-TC; 83735-TC; 84100-TC; 84443-TC; 84484-TC; 85025-TC; 85730-TC; 87081-TC; C9113; C9803; G0378; J2270; J2405; J3490; J7040; Q9963